=== PATIENT | male | born 1955 | race Caucasian/White ===

== ENCOUNTER 2018-06-20 06:07 | Inpatient (IN) | payer OTHER ==
--- NOTE | 2018-06-20 06:14 | PDOC ---
History of Present Illness - General Chief Complaint: Chest Pain Stated Complaint: CHEST PAIN Time Seen by Provider: 06/20/18 06:09 - History of Present Illness Initial Comments: 06/20/18 06:16 This 62-year-old man with a history of hypertension presents with few hour of substernal chest pressure radiating to bilateral jaws. He also has mild numbness of the left arm. Patient works irregular hours in his job, and began to feel mild chest pressure at approximately 3:30 AM while at work. He arrived home at approximately 4 AM (after working approximately 18 hours). He attempted to go to sleep but above symptoms worsened. He took his 6 AM doses of his antihypertensives and came to the ER. He denies shortness of breath/diaphoresis/nausea. No recent acute illness. He denies previous pain or shortness of breath with exertion. No previous history of TX or ACS. . 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 He states that fasting blood sugar was noted to be 300 by his PMD, Dr Abbott, earlier this year but he thought this was a mistake and never took the medication that was prescribed. He has been taking his antihypertensive medications as prescribed. He had one previous episode of chest pain ("many years ago ") seen in ER; thought to be anxiety and not cardiac Risk factors: Positive hypertension, history of smoking (quit more than 10 years ), obesity, possible DM; no hyperlipidemia/family history Past History - Past Medical History Allergies/Adverse Reactions: Allergies Allergy/AdvReac Type Severity Reaction Status Date / Time Penicillins Allergy Verified 06/20/18 07:50 Home Medications: Ambulatory Orders Amlodipine Besylate 1 tab PO DAILY 06/20/18 Aspirin [ASA -] 325 mg PO DAILY 06/20/18 Losartan/Hydrochlorothiazide [Losartan-Hctz 100-25 mg Tab] 1 each PO DAILY 06/20 Metoprolol Succinate [Toprol Xl -] 100 mg PO DAILY 06/20/18 HTN: Yes - Suicide/Smoking/Psychosocial Hx Smoking Status: Yes Smoking History: Current some day smoker Number of Cigarettes Smoked Daily: 0 Cigars Per Day: 1 Review of Systems - Review of Systems Able to Perform ROS?: Yes Comments:: 12 point review of systems is negative except for what is noted in the history of present illness *Physical Exam - Vital Signs Last Vital Signs Temp Pulse Resp BP Pulse Ox 98.8 F 87 20 162/98 98 06/21/18 14:00 06/21/18 14:00 06/21/18 14:00 06/21/18 14:00 06/21/18 08:00 - Physical Exam Comments: GENERAL: Adult male, alert and oriented X3, in no acute distress HEAD: Normal with no signs of trauma. EYES: PERRLA, EOMI, sclera anicteric, conjunctiva clear. ENT: Ears normal, nares patent, oropharynx clear without exudates. Moist mucous membranes. NECK: Normal range of motion, supple without lymphadenopathy, JVD, or masses. LUNGS: Breath sounds equal, clear to auscultation bilaterally. No wheezes, and no crackles. No pain on palpation of chest wall; pain reproduced with movement of arms HEART:Regular rate and rhythm, normal S1 and S2 without murmur, rub or gallop. ABDOMEN:.normal bowel sounds No guarding,tenderness or rebound.No masses No distention. EXTREMITIES: Normal range of motion, no edema. No clubbing or cyanosis. No erythema, or tenderness. NEUROLOGICAL: Cranial nerves II through XII grossly intact. Normal speech. No focal neurological deficits. MUSCULOSKELETAL: Back non-tender to palpation, no CVA tenderness SKIN: Warm, Dry, normal turgor, no rashes or lesions noted. 12-lead electrocardiogram performed and interpreted by me: Normal sinus rhythm at 83 bpm. There is left axis deviation. First degree AV block and nonspecific intraventricular block is present. There is no evidence of acute ST or T-wave abnormalities. No previous tracing is available for comparison ED Treatment Course - LABORATORY CBC & Chemistry Diagram: 06/20/18 06:30 06/21/18 08:00 - ADDITIONAL ORDERS Additional order review: Laboratory Results 06/21/18 06/21/18 06/21/18 12:33 08:00 08:00 Sodium 134 L Potassium 3.4 L Chloride 96 L Carbon Dioxide 29 Anion Gap 9 BUN 10 Creatinine 0.8 Creat Clearance w eGFR > 60 POC Glucometer 292 Random Glucose 264 H Calcium 8.7 Magnesium Cancelled 1.6 L Total Bilirubin 1.0 AST 86 H ALT 30 Alkaline Phosphatase 119 H Troponin I 16.00 H* Total Protein 7.5 Albumin 3.5 06/21/18 08:00 Sodium Cancelled Potassium Cancelled Chloride Cancelled Carbon Dioxide Cancelled Anion Gap Cancelled BUN Cancelled Creatinine Cancelled Creat Clearance w eGFR Cancelled POC Glucometer Random Glucose Cancelled Calcium Cancelled Magnesium Total Bilirubin Cancelled AST Cancelled ALT Cancelled Alkaline Phosphatase Cancelled Troponin I Total Protein Cancelled Albumin Cancelled 06/21/18 06/21/18 06/20/18 12:33 05:06 21:41 RBC MCV MCHC RDW MPV Neutrophils % Lymphocytes % Monocytes % Eosinophils % Basophils % POC Glucometer 292 283 205 06/20/18 06/20/18 06/20/18 16:32 11:37 06:30 RBC 5.15 MCV 85.9 MCHC 33.7 RDW 12.4 MPV 9.9 Neutrophils % 57.0 Lymphocytes % 29.6 Monocytes % 10.2 Eosinophils % 2.3 Basophils % 0.9 POC Glucometer [phone] - Medications Given in the ED: ED Medications Discontinued Medications Generic Name Dose Route Start Last Admin Trade Name Freq PRN Reason Stop Dose Admin Alprazolam 0.25 mg 06/21/18 10:30 06/21/18 10:44 Xanax - PO 06/21/18 10:31 0.25 mg ONCE ONE Administration Aspirin 325 mg 06/20/18 07:07 06/20/18 07:44 Asa - PO 06/20/18 07:08 Not Given ONCE ONE Atorvastatin Calcium 80 mg 06/20/18 20:52 06/20/18 21:37 Lipitor - PO 06/20/18 20:53 80 mg ONCE ONE Administration Clopidogrel Bisulfate 300 mg 06/20/18 21:45 06/20/18 21:38 Plavix - PO 06/20/18 21:46 300 mg ONCE ONE Administration Enoxaparin Sodium 140 mg 06/20/18 21:30 06/20/18 21:38 Lovenox - SQ 140 mg BID HARSH Administration Potassium Chloride 10 meq in 100 mls @ 100 mls/hr 06/21/18 09:15 06/21/18 10: 31 Potassium Chloride 10 Meq Premix Ivpb - IVPB 06/21/18 10:14 100 mls/hr Q60M HARSH Administration Insulin Aspart 1 vial 06/20/18 11:00 06/21/18 06:42 Novolog Vial Sliding Scale - SQ 6 units ACHS HARSH Administration Protocol Magnesium Sulfate 2 gm 06/21/18 10:15 06/21/18 10:31 Magnesium Sulfate IVPB 06/21/18 10:16 2 gm ONCE ONE Administration Metoprolol Tartrate 100 mg 06/21/18 01:54 06/21/18 02:38 Lopressor - PO 06/21/18 01:55 100 mg ONCE ONE Administration Potassium Chloride 20 meq 06/20/18 11:11 06/20/18 11:40 K-Dur - PO 06/20/18 11:12 20 meq ONCE ONE Administration Sodium Chloride 1,000 ml 06/20/18 08:50 06/20/18 09:00 Normal Saline - IV 06/20/18 08:51 1,000 ml ONCE ONE Administration Medical Decision Making - Medical Decision Making 06/20/18 06:38 This 62-year-old man with a history of hypertension, possible DM, moderately obese presents with a few hour history of substernal chest pressure radiating to bilateral jaws; no associated symptoms. Reportedly had normal stress test approximately 1 month ago. Physical exam unremarkable except for elevated blood pressure. 12-lead electrocardiogram shows no evidence of acute ST or T- wave abnormalities. Differential diagnosis includes ACS , GI etiology, musculoskeletal strain, anxiety CBC/chemistry profile/troponin/INR/UA sent 06/20/18 07:00 Case signed out to Dr Vasquez at end of shift *DC/Admit/Observation/Transfer Diagnosis at time of Disposition: Chest pain, New onset type 2 diabetes mellitus - Discharge Dispostion Condition at time of disposition: Guarded - Referrals - Patient Instructions - Post Discharge Activity
[2018-06-20] MEDS ORDERED: ASPIRIN 325 MG TABLET PO ONE (07:07)
--- NOTE | 2018-06-20 07:30 | PDOC ---
*Physical Exam - Vital Signs Last Vital Signs Temp Pulse Resp BP Pulse Ox 98.5 F 70 16 145/89 97 06/20/18 06:11 06/20/18 07:02 06/20/18 07:02 06/20/18 07:02 06/20/18 07:02 - Physical Exam Comments: 06/20/18 07:35 Gen: aaox3, nad heent: eomi, mmm neck: supple heart: +s1s2 reg lungs: cta b/l abd: soft, obese, nt/nd ext: trace edema to legs, pedal pulses intact skin: no rashes neuro: no focal deficits ED Treatment Course - LABORATORY CBC & Chemistry Diagram: 06/20/18 06:30 06/20/18 06:30 Medical Decision Making - Medical Decision Making 06/20/18 07:29 a/p: 62yo male with hx of HTN and poss dm with chest pressure to jaw this AM -signed out from the prior attending pending labs, cxr 06/20/18 07:36 pt states chest pressure resolved bp improved took full ASA this am took bp meds this am poss acs vs hypertensive urgency/emergency had stress test that was "normal" with Dr. Adams a month ago - underwent stress testing because he wanted to start an exercise program and wanted to be check prior to starting was told in the past he had an elevated BG - but never started the meds for DM 06/20/18 08:45 ua with glucose and protein pending CHEM cxr clear with slightly elevated R hemidiaphragm cbc normal 06/20/18 09:19 trop negative still have 1min episodes of chest discomfort that resolves spontaneously will place on obs 06/20/18 09:21 microblog sent to [facility] will place consult to DR. Adams 06/20/18 09:26 pt updated on labs and imaging willing to stay for further eval and cards eval consult placed to cardiology - Dr. Adams for eval 06/20/18 10:04 case discussed with Jevon from [employer] who accepts pt to service *DC/Admit/Observation/Transfer Diagnosis at time of Disposition: Chest pain, New onset type 2 diabetes mellitus - Discharge Dispostion Condition at time of disposition: Fair Decision to Admit order: Yes - Referrals Referrals: Carlos Abbott MD [Primary Care Provider] - - Patient Instructions - Post Discharge Activity - Attestations Physician Attestion: 06/20/18 09:22 I, Dr. Shakila Vasquez, DO, attest that this document has been prepared under my direction and personally reviewed by me in its entirety. I further attest, that it accurately reflects all work, treatment, procedures and medical decision -making performed by me.
[2018-06-20 08:28] LABS: URINE APPEARANCE Clear; URINE BILIRUBIN Negative (NEGATIVE); URINE COLOR Amber; URINE GLUCOSE (UA) 3+ (NEGATIVE); URINE KETONE Trace (NEGATIVE); URINE LEUK ESTERASE Negative (NEGATIVE); URINE NITRITE Negative (NEGATIVE)
[2018-06-20 08:32] LABS: BASO % 0.9 % (0-2.0); EOS % 2.3 % (0-4.5); HEMATOCRIT 44.3 % (35.4-49); HEMOGLOBIN 14.9 GM/dl (11.7-16.9); LYMPH % 29.6 % (8-40); MCHC 33.7 g/dl (32.0-35.9); MEAN CELL VOLUME 85.9 fl (80-96); MEAN PLT VOLUME 9.9 fl (7.5-11.1); MONO % 10.2 % (3.8-10.2); PLATELET COUNT 300 K/MM3 (134-434); RBC 5.15 M/mm3 (4.00-5.60); RDW 12.4 % (11.9-15.9)
[2018-06-20 08:34] LABS: URINE PROTEIN 2+ (NEGATIVE)
[2018-06-20 08:43] LABS: ALBUMIN 3.8 g/dl (3.5-5.0); ALK PHOS 94 U/L (32-92); ANION GAP 10 MMOL/L (8-16); BILIRUBIN,TOTAL 0.9 mg/dl (0.2-1.0); BLOOD UREA NITROGEN 17 mg/dl (7-18); CALCIUM 8.9 mg/dl (8.4-10.2); CHLORIDE 95 mmol/L (98-107); CO2 28 mmol/L (22-28); CREATININE 0.7 mg/dl (0.6-1.3); POTASSIUM 3.5 mmol/L (3.5-5.1); SGOT/AST 14 U/L (10-42); SGPT/ALT 20 U/L (10-40); SODIUM 133 mmol/L (136-145); TOT PROT 7.1 g/dl (6.4-8.3)
[2018-06-20 08:50] LABS: GLUCOSE,RANDOM 329 mg/dl (74-106)
[2018-06-20] MEDS ORDERED: SODIUM CHLORIDE 0.9% 1000 ML INFUS.BAG IV ONE (08:50)
[2018-06-20 09:01] LABS: INR 0.97 (0.82-1.09); PROTHROMBIN TIME (PATIENT) 10.9 SEC (10.2-13.0)
[2018-06-20 09:13] LABS: URINE WBC 0-2 (0-2)
--- NOTE | 2018-06-20 10:43 | HP ---
CHIEF COMPLAINT: Chest pain,uncontrolled DM and HTN. PCP: Dr. Abbott cardiology Dr. Adams HISTORY OF PRESENT ILLNESS: This is a 62-year-old man with a history of hypertension, recently dx DM, moderately obese, ex-smoker,?anxiety and gastritis, who presents to ER c/o cp. Pt states that MS chest pain started at work around 3Am which radiated to mid- back with no associated symptoms, went home took Zantac 150mg and went to bed, woke up around 4:15 am with chest discomfort radiates to bilateral jaws and left arm numbness. Pt denies sob, palpitations, diaphoresis,DEL ROSARIO, dizziness, abdominal pain, N/V/D, fever, chills or urinary symptoms. 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 Pt also states that fasting blood sugar was noted to be 300 by his PMD, Dr Abbott recently and was prescribed Metformin 1000mg daily but he thought this was a mistake and never took the medication that was prescribed. ER course was notable for: (1)EKG Sr with first degree AVB, non- specific ST changes. (2)BP 190/118, HR 89, R 18 and Temp 98.5 (3)CXR: No acute pathology (4) initial trop - neg , BS 329, ALK-94, NA 133 Recent Travel:No PAST MEDICAL HISTORY: as mentioned above PAST SURGICAL HISTORY: Tonsillectomy as a child Social History: Smoking:ex- smoker Alcohol:social (special occasions) Drugs: None Family History: Father - HTN, Dementia, Colon Ca - of colon CA - year ago Mother : CVA, HTN and CHO Siblings: DM,HTN Allergies Penicillins Allergy (Verified 06/20/18 07:50) STATES HE GETS A HIGH FEVER HOME MEDICATIONS: Home Medications Medication Instructions Recorded Amlodipine Besylate 1 tab PO DAILY 06/20/18 Aspirin [ASA -] 325 mg PO DAILY 06/20/18 Losartan/Hydrochlorothiazide 1 each PO DAILY 06/20/18 [Losartan-Hctz 100-25 mg Tab] Metoprolol Succinate [Toprol Xl -] 100 mg PO DAILY 06/20/18 REVIEW OF SYSTEMS CONSTITUTIONAL: Absent: fever, chills, diaphoresis, generalized weakness, malaise, loss of appetite, weight change HEENT: Absent: rhinorrhea, nasal congestion, throat pain, throat swelling, difficulty swallowing, mouth swelling, ear pain, eye pain, visual changes CARDIOVASCULAR: Absent: chest pain, syncope, palpitations, irregular heart rate, lightheadedness , peripheral edema RESPIRATORY: Absent: cough, shortness of breath, dyspnea with exertion, orthopnea, wheezing, stridor, hemoptysis GASTROINTESTINAL: Absent: abdominal pain, abdominal distension, nausea, vomiting, diarrhea, constipation, melena, hematochezia GENITOURINARY: Absent: dysuria, frequency, urgency, hesitancy, hematuria, flank pain, genital pain MUSCULOSKELETAL: Absent: myalgia, arthralgia, joint swelling, back pain, neck pain SKIN: Absent: rash, itching, pallor HEMATOLOGIC/IMMUNOLOGIC: Absent: easy bleeding, easy bruising, lymphadenopathy, frequent infections ENDOCRINE: Absent: unexplained weight gain, unexplained weight loss, heat intolerance, cold intolerance NEUROLOGIC: Absent: headache, focal weakness or paresthesias, dizziness, unsteady gait, seizure, mental status changes, bladder or bowel incontinence PSYCHIATRIC: Absent: anxiety, depression, suicidal or homicidal ideation, hallucinations. PHYSICAL EXAMINATION Vital Signs - 24 hr 06/20/18 06/20/18 06/20/18 06:11 07:02 09:15 Temperature 98.5 F Pulse Rate 89 Pulse Rate [ 70 74 Apical] Respiratory 18 16 20 Rate Blood Pressure 190/118 Blood Pressure 145/89 164/97 [Arm] O2 Sat by Pulse 99 97 97 Oximetry (%) 06/20/18 10:00 Temperature Pulse Rate Pulse Rate [ 73 Apical] Respiratory 22 Rate Blood Pressure Blood Pressure 165/99 [Arm] O2 Sat by Pulse 96 Oximetry (%) GENERAL: Awake, alert, and fully oriented, in no acute distress. HEAD: Normal with no signs of trauma. EYES: Pupils equal, round and reactive to light, extraocular movements intact, sclera anicteric, conjunctiva clear. No lid lag. EARS, NOSE, THROAT: Ears normal, nares patent, oropharynx clear without exudates. Moist mucous membranes. NECK: Normal range of motion, supple without lymphadenopathy, JVD, or masses. LUNGS: Breath sounds equal, clear to auscultation bilaterally. No wheezes, and no crackles. No accessory muscle use. HEART: Regular rate and rhythm, normal S1 and S2 without murmur, rub or gallop. ABDOMEN: Soft, nontender, not distended, normoactive bowel sounds, no guarding, no rebound, no masses. No hepatomegaly or splenomegaly. MUSCULOSKELETAL: Normal range of motion at all joints. No bony deformities or tenderness. No CVA tenderness. UPPER EXTREMITIES: 2+ pulses, warm, well-perfused. No cyanosis. No clubbing. No peripheral edema. LOWER EXTREMITIES: 2+ pulses, warm, well-perfused. No calf tenderness. No peripheral edema. NEUROLOGICAL: Cranial nerves II-XII intact. Normal speech. Normal gait. PSYCHIATRIC: Cooperative. Good eye contact. Appropriate mood and affect. SKIN: Warm, dry, normal turgor, no rashes or lesions noted, normal capillary refill. Laboratory Results - last 24 hr 06/20/18 06/20/18 06/20/18 06:30 06:30 06:30 WBC 7.0 RBC 5.15 Hgb 14.9 Hct 44.3 MCV 85.9 MCH 29.0 MCHC 33.7 RDW 12.4 Plt Count 300 MPV 9.9 Absolute Neuts (auto) 3.9 Neutrophils % 57.0 Lymphocytes % 29.6 Monocytes % 10.2 Eosinophils % 2.3 Basophils % 0.9 PT with INR INR Sodium 133 L Potassium 3.5 Chloride 95 L Carbon Dioxide 28 Anion Gap 10 BUN 17 Creatinine 0.7 Creat Clearance w eGFR > 60 Random Glucose 329 H* Calcium 8.9 Total Bilirubin 0.9 AST 14 ALT 20 Alkaline Phosphatase 94 H Creatine Kinase Cancelled Troponin I Cancelled Total Protein 7.1 Albumin 3.8 Urine Color Erin Urine Appearance Clear Urine pH 6.0 Ur Specific [place] 1.015 Urine Protein 2+ H Urine Glucose (UA) 3+ H Urine Ketones Trace Urine Blood Negative Urine Nitrite Negative Urine Bilirubin Negative Urine Urobilinogen 1.0 Ur Leukocyte Esterase Negative Urine RBC No Result Required. Urine WBC 0-2 06/20/18 06/20/18 06/20/18 06:30 07:44 07:44 WBC RBC Hgb Hct MCV MCH MCHC RDW Plt Count MPV Absolute Neuts (auto) Neutrophils % Lymphocytes % Monocytes % Eosinophils % Basophils % PT with INR 10.9 INR 0.97 Sodium Potassium Chloride Carbon Dioxide Anion Gap BUN Creatinine Creat Clearance w eGFR Random Glucose Calcium Total Bilirubin AST ALT Alkaline Phosphatase Creatine Kinase 52 Troponin I < 0.03 Total Protein Albumin Urine Color Urine Appearance Urine pH Ur Specific [place] Urine Protein Urine Glucose (UA) Urine Ketones Urine Blood Urine Nitrite Urine Bilirubin Urine Urobilinogen Ur Leukocyte Esterase Urine RBC Urine WBC ASSESSMENT/PLAN: This is a 62-year-old man with a history of hypertension, recently dx DM, moderately obese, ex-smoker,?anxiety and gastritis, who presents to ER c/o cp. * Chest pain R/O ACS -serial cardiac enzymes - tro neg x1 - tele monitoring -cardiology consult requested - will cont on ASA, BB - will check fasting lipids * Uncontrolled HTN - will cont on homes - will monitor BP closely - Na controlled diet * DM- uncontrolled - BS 329 - FS AC& HS - will start on Lispro sliding scale - will check Hgb Alc - Nutritional consult ordered * Obesity - weight loss encouraged - Nutritional consult ordered * Gastritis - will add PPI * Hyponatremia- likely due to diuretic use - K- 3.5 - K- [id number] x1 dose -NA 133, s/p IV hydration * F/E/N - Diabetic,NA controlled diet - Replace electrolytes as needed Visit type - Emergency Visit Emergency Visit: Yes Care time: The patient presented to the Emergency Department on the above date and was hospitalized for further evaluation of their emergent condition. - New Patient This patient is new to me today: Yes Date on this admission: 06/20/18 - Critical Care Critical Care patient: No Hospitalist Screening - Colonoscopy Questionnaire Colonoscopy Questionnaire: Colonoscopy Questionnaire - Patient: 50 - 75 years old and never had a screening colonoscopy: Yes History of colon or rectal polyps, or CA: No History of IBD, Crohn's disease or UC: No History of abdominal radiation therapy as a child: No - Relative: 1 with colon or rectal CA, or polyps at age 60 or younger: Yes Colon or rectal CA diagnosed at age 45 or younger: No Multiple relatives with colon or rectal CA: No - Outcome: Screening Result: Positive Screen
[2018-06-20] MEDS ORDERED: hydrALAZINE HCL 20 MG/ML VIAL IVPUSH PRN (11:02)
[2018-06-20] MEDS ORDERED: POTASSIUM CHLORIDE TABS 20 MEQ TABLET.ER (FP) PO ONE (11:11)
[2018-06-20] MEDS ORDERED: HEMOQUE TEST 1 EACH EACH ONE (11:34)
[2018-06-20] MEDS: INSULIN SLIDING SCALE (NOVOLOG) 1 VIAL SQ SCH ×3 (11:38→21:46)
[2018-06-20] MEDS ORDERED: INSULIN (NOVOLOG) ASPART 100 UNITS/ML 10ML VIAL ONE ×3 (11:40→21:44)
[2018-06-20 14:34] LABS: CHOLESTEROL 191 mg/dl; HDL CHOLESTEROL 41 mg/dl (29-89); LDL CHOLESTEROL (ONLY DFH) 135 mg/dl; TRIGLYCERIDES 75 mg/dl (35-160)
--- NOTE | 2018-06-20 18:55 | EKG ---
Test Reason : Blood Pressure : / mmHG Vent. Rate : 083 BPM Atrial Rate : 083 BPM P-R Int : 216 ms QRS Dur : 128 ms QT Int : 394 ms P-R-T Axes : 056 -48 080 degrees QTc Int : 462 ms SINUS RHYTHM WITH 1ST DEGREE A-V BLOCK LEFT AXIS DEVIATION NON-SPECIFIC INTRA-VENTRICULAR CONDUCTION BLOCK ABNORMAL ECG NO PREVIOUS ECGS AVAILABLE Confirmed by MAIKEL CHANG, APRYL ([id number]) on 06/20/2018 6:54:52 PM Referred By: MD KHOURY Confirmed By:APRYL KO MD
[2018-06-20] MEDS ORDERED: ATORVASTATIN CA 80 MG TABLET (FP) PO ONE (20:52)
[2018-06-20] MEDS ORDERED: CLOPIDOGREL BISULFATE 300 MG TABLET PO ONE (21:00)
[2018-06-20] MEDS ORDERED: ENOXAPARIN NA (PORCINE) 80 MG/0.8 ML DISP.SYRIN SQ SCH (21:30)
[2018-06-20] MEDS ORDERED: CLOPIDOGREL BISULFATE 75 MG TABLET (FP) PO ONE (21:45)
[2018-06-21] MEDS ORDERED: METOPROLOL TARTRATE 50 MG TABLET (FP) PO ONE (01:54)
--- NOTE | 2018-06-21 04:52 | HOSP ---
Subjective - Review of Symptoms Neurological: Yes: Numbness (metatarsal plantar surface) Physical Examination Vital Signs: Vital Signs Temperature 98.1 F 06/21/18 02:00 Pulse Rate 81 06/21/18 02:00 Respiratory Rate 18 06/21/18 02:00 Blood Pressure 165/107 06/21/18 02:00 O2 Sat by Pulse Oximetry (%) 95 06/21/18 00:56 Findings/Remarks: NAD, AAOx3. Neck supple, no LAD or JVD. Lungs CTA B/L. -w/r/r RRR. Normal S1, S2. -m/r/g abd soft NT/ND, +normactive bowels sounds 5/5 muscle strength b/l u/l extremities 2+ pedal pulses bilaterally nl sensation b/l Constitutional: Yes: Obese Labs: CBC, BMP 06/20/18 06:30 06/20/18 06:30 Hospitalist Encounter Assessment: Pt reports symptoms of chest pressure at 3am while driving home from work. He complained of persistent chest pain and was admitted at [facility]. Due to increase in troponin, pt was transferred to [facility] for mgmt of NSTEMI. Pt seen and examined at bedside. Pt reports resolution of chest pain at this time. Denies headaches/dizziness, fever/chills, nausea/vomiting, urinary/bowel symptoms. Repeat troponins showed continue elevation from 3.39 to 13.60. Repeat ECG was done that showed ST evolution in V4, V5, V6. Cardio was contacted immediately and made aware of ECG and troponin changes. Per cardio, evolution of ECG changes likely portrayed cardiac event that happened hours ago and not an acute cardiac event. Medical management was opted with no need for immediate cath, however, angiogram was recommended at some point in the near future. #Post-infarct angina 2/2 NSTEMI -Aspirin 81 QD -Atorvastatin 80 HS -Clopidogrel 75 QD -Metoprolol Succinate 100 QD -cardio recs appreciated -Nitroglycerin 0.4 mg SL -f/u repeat trop, ECG #Uncontrolled HTN; 156/92 -Hydralazine 10 mg IVP Q8H -HCTZ 25 QD -Losartan 100 QD -Amlodipine 10 QD -cont to monitor #DM; A1c 10.2, Initial Glu 329 -BGMs -ISS -Levemir 10U HS -pt needs outpatient follow up with PCP for continued mgmt -pt also needs podiatry outpatient follow up for further evaluation of peripheral neuropathy #DVT Ppx -Lovenox 140 SQ BID #FEN -no IVF -Na 133, recheck CMP in AM -diabetic diet dispo -cont to monitor on tele Visit type - Emergency Visit Emergency Visit: No - New Patient This patient is new to me today: Yes Date on this admission: 06/21/18 - Critical Care Critical Care patient: No
[2018-06-21] MEDS ORDERED: NITROGLYCERIN SUBLINGUAL 1/200 0.3 MG BTL SL PRN (05:27)
--- NOTE | 2018-06-21 05:28 | PN ---
Teaching Attending Note Name of Resident: Rosina Schwab ATTENDING PHYSICIAN STATEMENT I saw and evaluated the patient. Chart, data, imaging reviewed. I reviewed the resident's note and discussed the case with the resident. I agree with the resident's findings and plan as documented. 62yo man with chest pressure which started 8 at 3 am when he was driving home from work and recurred after attempting to sleep, found to have increasing troponin in [facility] ER and transferred to [place] for management of NSTEMI. 4th troponin has had risen up to 13. EKG showed possible evolution of NE in anterior -lateral leads. Patient was treated medically with clopidogrel, ASA, statin, Bblocker, enoxaparin. Cardiology front office associate was contacted and suggested that patient does not need urgent angiography since he is currently asymptomatic. Will continue to trend troponins and manage medically.
[2018-06-21] MEDS ORDERED: NITROGLYCERIN SUBLINGUAL 1/150 0.4 MG TAB SL PRN (05:49)
[2018-06-21] MEDS: INSULIN SLIDING SCALE (NOVOLOG) 1 VIAL SQ SCH (06:42)
[2018-06-21 08:50] LABS: ALBUMIN 3.5 g/dl (3.4-5.0); ALK PHOS 119 U/L (45-117); ANION GAP 9 MMOL/L (8-16); BLOOD UREA NITROGEN 10 mg/dL (7-18); CALCIUM 8.7 mg/dL (8.5-10.1); CHLORIDE 96 mmol/L (98-107); CO2 29 mmol/L (21-32); CREATININE 0.8 mg/dL (0.7-1.3); GLUCOSE,RANDOM 264 mg/dL (74-106); POTASSIUM 3.4 mmol/L (3.5-5.1); SGOT/AST 86 U/L (15-37); SGPT/ALT 30 U/L (12-78); SODIUM 134 mmol/L (136-145); TOT PROT 7.5 g/dl (6.4-8.2)
[2018-06-21] MEDS ORDERED: KCL 10 MEQ IVPB 10 MEQ/100 ML INFUS.BAG IVPB SCH (09:15)
[2018-06-21 09:54] LABS: MAGNESIUM 1.6 mg/dL (1.8-2.4)
[2018-06-21] MEDS ORDERED: PANTOPRAZOLE 40 MG TABLET (FP) PO SCH (10:00)
[2018-06-21] MEDS ORDERED: ASPIRIN 325 MG TABLET PO SCH (10:00)
[2018-06-21] MEDS ORDERED: LOSARTAN POTASSIUM 50 MG TABLET (FP) PO SCH (10:00)
[2018-06-21] MEDS ORDERED: CLOPIDOGREL BISULFATE 75 MG TABLET (FP) PO SCH (10:00)
[2018-06-21] MEDS ORDERED: HYDROCHLOROTHIAZIDE 25 MG TABLET (FP) PO SCH (10:00)
[2018-06-21] MEDS ORDERED: ASPIRIN 81 MG CHEWABLE TABLETS PO SCH (10:00)
[2018-06-21] MEDS ORDERED: amLODIPine BESYLATE 10 MG TABLET (FP) PO SCH (10:00)
[2018-06-21] MEDS ORDERED: PATIENT'S OWN MEDICATION (NON-FORMULARY) (Losartan/Hydrochlorothiazide [Losartan-Hctz 100- PO SCH (10:00)
[2018-06-21] MEDS ORDERED: HEPARIN NA (PORCINE) 5,000 UNITS/ML 1ML VIAL IVPUSH PRN ×2 (10:03)
--- NOTE | 2018-06-21 10:03 | CON.CARD ---
Consult Consult Specialty:: Cardiology Referred by:: Kristen Reason for Consultation:: NSTEMI - History of Present Illness Chief Complaint: chest pain History of Present Illness: 62M h/o DM, HTN p/w chest pain x 2 episodes. He works night hours, was driving home from work around 4 am and felt chest pain radiating to mid back, felt like burning, took zantac and went to bed. Woke up again an hour later with chest discomfort radiating to robin jaws, L arm numbness. No dyspnea, orthopnea, PND, palps. Has chronic LLE edema from prior leg injury. Patient of Dr. Adams, last seen in 03/2018, had stress echo showing poor exercise capacity, no ischemic changes on EKG or echo. Trop neg ->0.6->3->13->16, started on plavix 300 mg x1, lovenox, aspirin, atorvastatin. Also noted to have high blood sugar , per patient dx of DM is new. Has not had further episodes of chest pain. - History Source History Provided By: Patient Limitations to Obtaining History: No Limitations - Past Medical History Cardio/Vascular: Yes: HTN Endocrine: Yes: Diabetes Mellitus - Alcohol/Substance Use Hx Alcohol Use: Yes (SOCIALLY) - Smoking History Smoking history: Current some day smoker Have you smoked in the past 12 months: Yes Aproximately how many cigarettes per day: 0 Home Medications - Allergies Allergies/Adverse Reactions: Allergies Allergy/AdvReac Type Severity Reaction Status Date / Time Penicillins Allergy Verified 06/20/18 07:50 - Home Medications Home Medications: Ambulatory Orders Amlodipine Besylate 1 tab PO DAILY 06/20/18 Aspirin [ASA -] 325 mg PO DAILY 06/20/18 Losartan/Hydrochlorothiazide [Losartan-Hctz 100-25 mg Tab] 1 each PO DAILY 06/20 Metoprolol Succinate [Toprol Xl -] 100 mg PO DAILY 06/20/18 Review of Systems - Review of Systems Constitutional: reports: No Symptoms Eyes: reports: No Symptoms HENT: reports: No Symptoms Neck: reports: No Symptoms Cardiovascular: reports: Chest Pain Respiratory: reports: No Symptoms Gastrointestinal: reports: No Symptoms Genitourinary: reports: No Symptoms Musculoskeletal: reports: No Symptoms Integumentary: reports: No Symptoms Neurological: reports: No Symptoms Endocrine: reports: No Symptoms Hematology/Lymphatic: reports: No Symptoms Psychiatric: reports: Anxiety Vital Signs: Vital Signs Temperature 99 F 06/21/18 06:00 Pulse Rate 62 06/21/18 06:00 Respiratory Rate 18 06/21/18 06:00 Blood Pressure 151/92 06/21/18 06:00 O2 Sat by Pulse Oximetry (%) 98 06/21/18 08:00 Constitutional: Yes: Well Nourished, No Distress, Calm Eyes: Yes: Conjunctiva Clear, EOM Intact HENT: Yes: Atraumatic, Normocephalic Neck: Yes: Supple Respiratory: Yes: Regular, CTA Bilaterally Gastrointestinal: Yes: Normal Bowel Sounds, Soft Cardiovascular: Yes: Regular Rate and Rhythm JVD: No Heart Sounds: Yes: S1, S2 Edema: No Edema: LLE: 1+, RLE: Trace Peripheral Pulses: 1+ Left Doralis Pedis, 1+ Right Dorsalis Pedis Neurological: Yes: Alert, Oriented Psychiatric: Yes: Alert, Oriented - Other Data Labs, Other Data: CBC, BMP 06/20/18 06:30 06/21/18 08:00 INR, PTT INR 0.97 (0.82-1.09) 06/20/18 06:30 Troponin, BNP 06/20/18 06/20/18 06/21/18 13:50 19:50 02:10 Troponin I 0.64 H* D 3.39 H* D 13.60 H* 06/21/18 08:00 Troponin I 16.00 H* Troponin, BNP 06/20/18 06/20/18 06/21/18 13:50 19:50 02:10 Troponin I 0.64 H* D 3.39 H* D 13.60 H* 06/21/18 08:00 Troponin I 16.00 H* Assessment/Plan Stress echo 03/31/18 poor exercise workload, very rapid early rise in HR, appropraite BP response to exercise. Nonischemic stress test by EKG, no echo evidence of inducible ischemia EKG 06/20 sinus 1st deg AVB, IVCD, LAD EKG 06/21 sinus 1st deg AVB, LVH Tele: sinus with PVCs 62M h/o DM, HTN p/w NSTEMI NSTEMI - received plavix 300 mg, aspirin, atorvastatin, lovenox - case discussed with Dr. Carcamo, [facility], accepts for transfer for cardiac catheterization - will stop lovenox and start heparin gtt - monitoring on tele DM - manage per primary team HTN - not well controlled, has not had AM meds yet
[2018-06-21] MEDS ORDERED: MAGNESIUM SULF 50% (8.12 MEQ/2 ML-1 GM VIAL) IVPB ONE (10:15)
[2018-06-21] MEDS ORDERED: HEPARIN - 25,000 UNIT in SODIUM CHLORIDE 495 ML IV SCH (10:15)
--- NOTE | 2018-06-21 10:29 | PN ---
Physical Exam: SUBJECTIVE: Patient seen and examined at the bedside. Denies chest pain or shortness of breath. 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 OBJECTIVE: for transfer to [place] xanax x 1 for anxiety Vital Signs Period Temp Pulse Resp BP Sys/Lockwood Pulse Ox Last 24 Hr 98.1 F-99 F 62-84 15-20 146-165/92-107 95-98 GENERAL: The patient is awake, alert, and fully oriented, in no acute distress. HEAD: Normal with no signs of trauma. EYES: PERRL, extraocular movements intact, sclera anicteric, conjunctiva clear. No ptosis. ENT: Ears normal, nares patent, oropharynx clear without exudates, moist mucous membranes. NECK: Trachea midline, full range of motion, supple. LUNGS: Breath sounds equal, clear to auscultation bilaterally, no wheezes, no crackles, no accessory muscle use. HEART: Regular rate and rhythm, S1, S2 without murmur, rub or gallop. ABDOMEN: Soft, nontender, nondistended, normoactive bowel sounds, no guarding, no rebound, no hepatosplenomegaly, no masses. EXTREMITIES: 2+ pulses, warm, well-perfused, no edema. NEUROLOGICAL: Cranial nerves II through XII grossly intact. Normal speech, gait not observed. PSYCH: Normal mood, normal affect. SKIN: Warm, dry, normal turgor, no rashes or lesions noted Laboratory Results - last 24 hr 06/20/18 06/20/18 06/20/18 06:30 11:37 13:50 Sodium Potassium Chloride Carbon Dioxide Anion Gap BUN Creatinine Creat Clearance w eGFR POC Glucometer [phone] Random Glucose Hemoglobin A1c % 10.2 H Calcium Magnesium Total Bilirubin AST ALT Alkaline Phosphatase Troponin I 0.64 H* D Total Protein Albumin Triglycerides Cholesterol Total LDL Cholesterol HDL Cholesterol 06/20/18 06/20/18 06/20/18 13:50 16:32 19:50 Sodium Potassium Chloride Carbon Dioxide Anion Gap BUN Creatinine Creat Clearance w eGFR POC Glucometer 236 Random Glucose Hemoglobin A1c % Calcium Magnesium Total Bilirubin AST ALT Alkaline Phosphatase Troponin I 3.39 H* D Total Protein Albumin Triglycerides 75 Cholesterol 191 Total LDL Cholesterol 135 HDL Cholesterol 41 06/20/18 06/21/18 06/21/18 21:41 02:10 05:06 Sodium Potassium Chloride Carbon Dioxide Anion Gap BUN Creatinine Creat Clearance w eGFR POC Glucometer 205 283 Random Glucose Hemoglobin A1c % Calcium Magnesium Total Bilirubin AST ALT Alkaline Phosphatase Troponin I 13.60 H* Total Protein Albumin Triglycerides Cholesterol Total LDL Cholesterol HDL Cholesterol 06/21/18 06/21/18 06/21/18 08:00 08:00 08:00 Sodium Cancelled 134 L Potassium Cancelled 3.4 L Chloride Cancelled 96 L Carbon Dioxide Cancelled 29 Anion Gap Cancelled 9 BUN Cancelled 10 Creatinine Cancelled 0.8 Creat Clearance w eGFR Cancelled > 60 POC Glucometer Random Glucose Cancelled 264 H Hemoglobin A1c % Calcium Cancelled 8.7 Magnesium 1.6 L Cancelled Total Bilirubin Cancelled 1.0 AST Cancelled 86 H ALT Cancelled 30 Alkaline Phosphatase Cancelled 119 H Troponin I 16.00 H* Total Protein Cancelled 7.5 Albumin Cancelled 3.5 Triglycerides Cholesterol Total LDL Cholesterol HDL Cholesterol Active Medications Generic Name Dose Route Start Last Admin Trade Name Freq PRN Reason Stop Dose Admin Amlodipine Besylate 10 mg 06/21/18 10:00 Norvasc - PO DAILY [facility] Aspirin 81 mg 06/21/18 10:00 Asa - PO DAILY [facility] Atorvastatin Calcium 80 mg 06/21/18 22:00 Lipitor - PO HS [facility] Clopidogrel Bisulfate 75 mg 06/21/18 10:00 Plavix - PO DAILY [facility] Heparin Sodium (Porcine) 1,000 unit 06/21/18 10:03 Heparin - IVPUSH PRN PRN Heparin Heparin Sodium (Porcine) 5,000 unit 06/21/18 10:03 Heparin - IVPUSH PRN PRN Heparin Hydralazine HCl 10 mg 06/20/18 11:02 Apresoline Injection - IVPUSH Q8H PRN HYPERTENSION Hydrochlorothiazide 25 mg 06/21/18 10:00 Hctz - PO DAILY [facility] Heparin Sodium (Porcine) 25, 500 mls @ 20 mls/hr 06/21/18 10:15 000 unit/ Sodium Chloride IV TITR [facility] Protocol 1,000 UNIT/HR Insulin Aspart 1 vial 06/20/18 11:00 06/21/18 06:42 Novolog Vial Sliding Scale - SQ 6 units ACHS [facility] Administration Protocol Insulin Detemir 10 units 06/21/18 22:00 Levemir Vial SQ HS [facility] Losartan Potassium 100 mg 06/21/18 10:00 Cozaar - PO DAILY [facility] Metoprolol Succinate 100 mg 06/21/18 10:00 Toprol Xl - PO DAILY [facility] Nitroglycerin 0.4 mg 06/21/18 05:49 Nitrostat - SL Q5M PRN FOR CHEST PAIN Pantoprazole Sodium 40 mg 06/21/18 10:00 Protonix - PO DAILY [facility] ASSESSMENT/PLAN: Patient is a 62 year old male with a significant past medical history of hypertension, diabetes, obesity with bmi 40, ex smoker and anxiety. Patient presents to [facility] with chest pain that radiated to bilateral jaws with left arm numbness. Patent was transferred to [facility] from [facility] for elevated troponins. ekg: NSR, 1st degree av block. Card: NSTEMI: Trops 0.6>3.3>13>16. PVCs on tele. No chest pain, denies shorntess of breath. Started on Lovenox weight based BID and convered to Heparin drip in anticipation of cardiac cath at [place]. Overnight given Plavix 300mg x 1, Lipitor 80mg x 1, Lovenox, ASA. Hypertension: on cozaar, toprol, norvasc. Monitor BP HLD: on lipitor Endocrine: Diabetes: uncontrolled, tightened SS, increased levemir. monitor BGMs. fen no ivf monitor electrolytes low salt diet prophy; heparin drip full code Visit type - Emergency Visit Emergency Visit: Yes ED Registration Date: 06/21/18 Care time: The patient presented to the Emergency Department on the above date and was hospitalized for further evaluation of their emergent condition. - New Patient This patient is new to me today: Yes Date on this admission: 06/21/18 - Critical Care Critical Care patient: No - Discharge Referral Referred to [facility] Med P.C.: No
[2018-06-21] MEDS ORDERED: ALPRAZolam 0.25 MG TABLET PO ONE (10:30)
[2018-06-21] MEDS ORDERED: INSULIN SLIDING SCALE (NOVOLOG) 1 VIAL SQ SCH (11:37)
[2018-06-21 14:31] VITALS: BMI 40.6
--- NOTE | 2018-06-21 16:23 | DS ---
Physical Exam: Physical Exam: SUBJECTIVE: Patient seen and examined at the bedside. Denies chest pain or shortness of breath. 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 OBJECTIVE: for transfer to [place] xanax x 1 for anxiety Vital Signs Period Temp Pulse Resp BP Sys/Lockwood Pulse Ox Last 24 Hr 98.1 F-99 F 62-87 18-20 134-165/82-107 95-98 PHYSICAL EXAM GENERAL: The patient is awake, alert, and fully oriented, in no acute distress. HEAD: Normal with no signs of trauma. EYES: PERRL, extraocular movements intact, sclera anicteric, conjunctiva clear. No ptosis. ENT: Ears normal, nares patent, oropharynx clear without exudates, moist mucous membranes. NECK: Trachea midline, full range of motion, supple. LUNGS: Breath sounds equal, clear to auscultation bilaterally, no wheezes, no crackles, no accessory muscle use. HEART: Regular rate and rhythm, S1, S2 without murmur, rub or gallop. ABDOMEN: Soft, nontender, nondistended, normoactive bowel sounds, no guarding, no rebound, no hepatosplenomegaly, no masses. EXTREMITIES: 2+ pulses, warm, well-perfused, no edema. NEUROLOGICAL: Cranial nerves II through XII grossly intact. Normal speech, gait not observed. PSYCH: Normal mood, normal affect. SKIN: Warm, dry, normal turgor, no rashes or lesions noted LABS Laboratory Results - last 24 hr 06/20/18 06/20/18 06/20/18 16:32 19:50 21:41 Sodium Potassium Chloride Carbon Dioxide Anion Gap BUN Creatinine Creat Clearance w eGFR POC Glucometer 236 205 Random Glucose Calcium Magnesium Total Bilirubin AST ALT Alkaline Phosphatase Troponin I 3.39 H* D Total Protein Albumin 06/21/18 06/21/18 06/21/18 02:10 05:06 08:00 Sodium Cancelled Potassium Cancelled Chloride Cancelled Carbon Dioxide Cancelled Anion Gap Cancelled BUN Cancelled Creatinine Cancelled Creat Clearance w eGFR Cancelled POC Glucometer 283 Random Glucose Cancelled Calcium Cancelled Magnesium Total Bilirubin Cancelled AST Cancelled ALT Cancelled Alkaline Phosphatase Cancelled Troponin I 13.60 H* Total Protein Cancelled Albumin Cancelled 06/21/18 06/21/18 06/21/18 08:00 08:00 12:33 Sodium 134 L Potassium 3.4 L Chloride 96 L Carbon Dioxide 29 Anion Gap 9 BUN 10 Creatinine 0.8 Creat Clearance w eGFR > 60 POC Glucometer 292 Random Glucose 264 H Calcium 8.7 Magnesium 1.6 L Cancelled Total Bilirubin 1.0 AST 86 H ALT 30 Alkaline Phosphatase 119 H Troponin I 16.00 H* Total Protein 7.5 Albumin 3.5 HOSPITAL COURSE: Date of Admission:06/21/18 Date of Discharge: 06/21/18 ASSESSMENT/PLAN: Patient is a 62 year old male with a significant past medical history of hypertension, diabetes, obesity with bmi 40, ex smoker and anxiety. Patient presents to [facility] with chest pain that radiated to bilateral jaws with left arm numbness. Patent was transferred to [facility] from [facility] for elevated troponins. ekg: NSR, 1st degree av block. Card: NSTEMI: Trops 0.6>3.3>13>16. PVCs on tele. No chest pain, denies shorntess of breath. Started on Lovenox weight based BID and convered to Heparin drip in anticipation of cardiac cath at [place]. Overnight given Plavix 300mg x 1, Lipitor 80mg x 1, Lovenox, ASA. Hypertension: on cozaar, toprol, norvasc. Monitor BP HLD: on lipitor Endocrine: Diabetes: uncontrolled, tightened SS, increased levemir. monitor BGMs. transfer to [place] for cardiac cath. 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 Referrals: Carlos Abbott MD [Primary Care Provider] - Fracisco Adams MD [Staff Physician] - Disposition: TRANSFER ACUTE CARE/OTHER HOSP - Home Medications Comprehensive Discharge Medication List: Ambulatory Orders Amlodipine Besylate 1 tab PO DAILY 06/20/18 Aspirin [ASA -] 325 mg PO DAILY 06/20/18 Losartan/Hydrochlorothiazide [Losartan-Hctz 100-25 mg Tab] 1 each PO DAILY 06/20 Metoprolol Succinate [Toprol Xl -] 100 mg PO DAILY 06/20/18 This patient is new to me today: Yes Date on this admission: 06/21/18 Emergency Visit: Yes ED Registration Date: 06/21/18 Care time: The patient presented to the Emergency Department on the above date and was hospitalized for further evaluation of their emergent condition. Critical Care patient: No - Discharge Referral Referred to [facility] Med P.C.: No
--- NOTE | 2018-06-21 21:55 | EKG ---
Test Reason : Blood Pressure : / mmHG Vent. Rate : 077 BPM Atrial Rate : 077 BPM P-R Int : 218 ms QRS Dur : 122 ms QT Int : 446 ms P-R-T Axes : 040 -60 -31 degrees QTc Int : 504 ms SINUS RHYTHM WITH 1ST DEGREE A-V BLOCK LEFT ANTERIOR FASCICULAR BLOCK LEFT VENTRICULAR HYPERTROPHY WITH QRS WIDENING POSSIBLE LATERAL INFARCT (CITED ON OR BEFORE 21-JUN-2018) CANNOT RULE OUT INFERIOR INFARCT (CITED ON OR BEFORE 21-JUN-2018) ABNORMAL ECG WHEN COMPARED WITH ECG OF 21-JUN-2018 02:05, RIGHT BUNDLE BRANCH BLOCK IS NO LONGER PRESENT Confirmed by MAIKEL CHANG, APRYL ([id number]) on 06/21/2018 9:54:53 PM Referred By: Mariano CAMACHO Confirmed By:APRYL KO MD
--- NOTE | 2018-06-21 21:56 | EKG ---
Test Reason : Blood Pressure : / mmHG Vent. Rate : 080 BPM Atrial Rate : 080 BPM P-R Int : 224 ms QRS Dur : 124 ms QT Int : 396 ms P-R-T Axes : 047 -61 014 degrees QTc Int : 456 ms SINUS RHYTHM WITH 1ST DEGREE A-V BLOCK RIGHT BUNDLE BRANCH BLOCK LEFT ANTERIOR FASCICULAR BLOCK BIFASCICULAR BLOCK LEFT VENTRICULAR HYPERTROPHY WITH REPOLARIZATION ABNORMALITY POSSIBLE LATERAL INFARCT , AGE UNDETERMINED CANNOT RULE OUT INFERIOR INFARCT (MASKED BY FASCICULAR BLOCK?) , AGE UNDETERMINED ABNORMAL ECG WHEN COMPARED WITH ECG OF 20-JUN-2018 06:12, RIGHT BUNDLE BRANCH BLOCK HAS REPLACED NON-SPECIFIC INTRA-VENTRICULAR CONDUCTION BLOCK BORDERLINE CRITERIA FOR LATERAL INFARCT ARE NOW PRESENT MINIMAL CRITERIA FOR INFERIOR INFARCT ARE NOW PRESENT Confirmed by APRYL KO MD ([id number]) on 06/21/2018 9:55:55 PM Referred By: Confirmed By:APRYL KO MD
[2018-06-21] MEDS ORDERED: INSULIN (LEVEMIR) 100 UNITS/ML UNITS SQ SCH (22:00)
[2018-06-21] MEDS ORDERED: ATORVASTATIN CA 80 MG TABLET (FP) PO SCH (22:00)
[2018-06-22 01:21] VITALS: BP 188/85; PULSE 63; TEMP 98.1
== END 2018-06-21 16:30 | disposition short-term general hospital (02) | DRG 281 ==
LOC: FER 06:07 → FM/S 10:08 → J4W 06-21 00:35 → OBSVTOIN 06-21 14:01
PROVIDERS: ADMIT Internal Medicine; ATTEND Nurse Practitioner Acute Care
DX: I21.4 Non-ST elevation (NSTEMI) myocardial infarction (principal); Z68.41 Body mass index [BMI] 40.0-44.9, adult; E87.1 Hypo-osmolality and hyponatremia; E11.9 Type 2 diabetes mellitus without complications; I10 Essential (primary) hypertension; I44.0 Atrioventricular block, first degree; F41.9 Anxiety disorder, unspecified; E11.65 Type 2 diabetes mellitus with hyperglycemia; E66.01 Morbid (severe) obesity due to excess calories; Z87.891 Personal history of nicotine dependence
CPT/HCPCS: 36415; 71045-TC-FY; 80053; 80061; 81003; 81015; 82550; 82962; 83036; 83735; 84484; 85025; 85610; 93005; 93010; 99285-25; G0378; J1644; J7030

== ENCOUNTER 2024-02-12 18:42 | Inpatient (IN) | payer OTHER ==
[2024-02-12] MEDS ORDERED: ACETAMINOPHEN INJECTION 100 ML IVPB ONE (19:35)
[2024-02-12] MEDS: SODIUM CHLORIDE 1,000 ML IV ONE (19:37)
[2024-02-12] MEDS: ACETAMINOPHEN 500 MG TABLET (FP) PO ONE (19:37)
[2024-02-12] MEDS: ACETAMINOPHEN 1000 MG/100 ML BAG IVPB ONE (19:37)
[2024-02-12 19:44] LABS: HEMATOCRIT 38.2 % (35.4-49); HEMOGLOBIN 12.8 G/dL (11.7-16.9); MCH 27.6 pg (25.7-33.7); MCHC 33.4 g/dl (32.0-35.9); MEAN CELL VOLUME 82.7 fl (80-96); MEAN PLT VOLUME 8.3 fl (7.5-11.1); PLATELET COUNT 298.8 10^3/uL (134-434); RBC 4.62 10^6/uL (4.00-5.60); RDW 15.4 % (11.9-15.9); WHITE BLOOD COUNT 15.7 10^3/uL (4.0-10.8)
[2024-02-12 19:49] LABS: EPITHELIAL CELLS 0-5 /hpf
[2024-02-12 20:08] LABS: ALBUMIN 3.6 g/dl (3.4-5.0); BILIRUBIN,TOTAL 0.8 mg/dl (0.2-1); CALCIUM 8.5 mg/dl (8.5-10.1); CREATININE 0.9 mg/dl (0.6-1.3); POTASSIUM 3.2 mmol/L (3.5-5.1); TOT PROT 6.2 g/dl (6.4-8.2)
[2024-02-12] MEDS ORDERED: PIPERACILLIN/TAZOBACTAM 4.5 GM VIAL IVPB ONE (21:29)
[2024-02-12] MEDS ORDERED: CEFEPIME HCL 2 GM VIAL (RESTRICTED TO ID) ONE (21:50)
[2024-02-12] MEDS: CEFEPIME HCL 2 GM VIAL (RESTRICTED TO ID) IVPB STA (22:30)
[2024-02-12 22:53] LABS: INR 1.96 (0.83-1.09); PROTHROMBIN TIME (PATIENT) 22.6 SEC (9.7-13.0)
[2024-02-13 04:30] VITALS: BMI 36.8
[2024-02-13] MEDS ORDERED: ACETAMINOPHEN 1000 MG/100 ML BAG IVPB PRN (05:36)
[2024-02-13] MEDS: SODIUM CHLORIDE 1,000 ML IV SCH (05:55)
[2024-02-13] MEDS: INSULIN ASPART SLIDING SCALE (NOVOLOG) 1 VIAL SQ SCH (06:11)
[2024-02-13] MEDS ORDERED: INSULIN (NOVOLOG) ASPART 100 UNITS/ML 10ML VIAL ONE (06:37)
[2024-02-13] MEDS: CEFEPIME HCL 2 GM VIAL (RESTRICTED TO ID) IVPB SCH (07:42)
[2024-02-13 08:47] LABS: BASO % 0.3 % (0-2.0); EOS % 0.1 % (0-4.5); HEMATOCRIT 34.8 % (35.4-49); HEMOGLOBIN 11.7 GM/dL (11.7-16.9); LYMPH % 7.5 % (8-40); MCH 27.6 pg (25.7-33.7); MCHC 33.7 g/dl (32.0-35.9); MEAN CELL VOLUME 81.9 fl (80-96); MEAN PLT VOLUME 8.2 fl (7.5-11.1); MONO % 9.7 % (3.8-10.2); NEUT % 82.4 % (42.8-82.8); PLATELET COUNT 335 10^3/uL (134-434); RBC 4.25 M/mm3 (4.00-5.60); WHITE BLOOD COUNT 14.7 K/mm3 (4.0-10.0)
[2024-02-13 09:04] LABS: POTASSIUM 3.2 mmol/L (3.5-5.1)
[2024-02-13 09:10] LABS: BLOOD UREA NITROGEN 14.3 mg/dL (7-18)
[2024-02-13 09:11] LABS: ALBUMIN 2.6 g/dl (3.4-5.0)
[2024-02-13 09:13] LABS: CREATININE 0.8 mg/dL (0.55-1.3)
[2024-02-13 09:15] LABS: BILIRUBIN,TOTAL 0.7 mg/dL (0.2-1); TOT PROT 6.2 g/dl (6.4-8.2)
[2024-02-13] MEDS: CEFEPIME 2 GM in DEXTROSE 5%-WATER 100 ML IVPB SCH ×2 (10:25→12:57)
[2024-02-13] MEDS: KCL 10 MEQ IVPB 10 MEQ/100 ML INFUS.BAG IVPB SCH (11:02)
[2024-02-13] MEDS: BUDESONIDE/FORMETEROL FUMARATE 160/4.5 mcg INHALER IH SCH (11:12)
[2024-02-13] MEDS ORDERED: MIDAZOLAM HCL 2 MG/2 ML SINGLE DOSE VIAL ONE (15:05)
[2024-02-13] MEDS ORDERED: FENTANYL CITRATE/PF 50 MCG/ML VIAL ONE (15:05)
[2024-02-13] MEDS: SODIUM CHLORIDE 500 ML IV SCH (15:31)
[2024-02-13] MEDS: MIDAZOLAM HCL 2 MG/2 ML SINGLE DOSE VIAL IVPUSH SCH (15:55)
[2024-02-13] MEDS: FENTANYL CITRATE/PF 50 MCG/ML VIAL IVPUSH SCH (15:55)
[2024-02-13] MEDS: CEFEPIME 1 GM in DEXTROSE 5%-WATER 100 ML IVPB SCH (18:26)
[2024-02-13] MEDS: ACETAMINOPHEN 1000 MG/100 ML BAG IVPB PRN (19:08)
[2024-02-13] MEDS: ROSUVASTATIN CA 20 MG TABLET PO SCH (21:57)
[2024-02-13] MEDS: ENOXAPARIN NA (PORCINE) 120 MG/0.8 ML DISP.SYRIN SQ SCH (21:57)
[2024-02-14] MEDS: ACETAMINOPHEN 1000 MG/100 ML BAG IVPB PRN (08:48)
[2024-02-14] MEDS: PANTOPRAZOLE 40 MG TABLET PO SCH (09:45)
[2024-02-14] MEDS: ASPIRIN COATED 81 MG TABLET.EC PO SCH (09:45)
[2024-02-14] MEDS ORDERED: FUROSEMIDE 20 MG TABLET (FP) PO SCH (10:00)
[2024-02-14 10:21] LABS: BASO % 0.4 % (0-2.0); EOS % 0.6 % (0-4.5); HEMATOCRIT 34.9 % (35.4-49); HEMOGLOBIN 11.7 GM/dL (11.7-16.9); LYMPH % 9.6 % (8-40); MCH 27.5 pg (25.7-33.7); MCHC 33.5 g/dl (32.0-35.9); MEAN CELL VOLUME 82.2 fl (80-96); MEAN PLT VOLUME 8.5 fl (7.5-11.1); MONO % 9.5 % (3.8-10.2); NEUT % 79.9 % (42.8-82.8); PLATELET COUNT 348 10^3/uL (134-434); RBC 4.24 M/mm3 (4.00-5.60); RDW 15.1 % (11.9-15.9); WHITE BLOOD COUNT 12.3 K/mm3 (4.0-10.0)
[2024-02-14 10:37] LABS: POTASSIUM 3.6 mmol/L (3.5-5.1)
[2024-02-14 10:43] LABS: CALCIUM 8.5 mg/dL (8.5-10.1)
[2024-02-14 10:45] LABS: ALBUMIN 2.5 g/dl (3.4-5.0); BLOOD UREA NITROGEN 14.8 mg/dL (7-18); MAGNESIUM 1.7 mg/dL (1.8-2.4)
[2024-02-14 10:48] LABS: CREATININE 0.7 mg/dL (0.55-1.3); TOT PROT 6.2 g/dl (6.4-8.2)
[2024-02-14 10:50] LABS: BILIRUBIN,TOTAL 0.7 mg/dL (0.2-1)
[2024-02-14] MEDS ORDERED: INSULIN (NOVOLOG) ASPART 100 UNITS/ML 10ML VIAL ONE (16:51)
[2024-02-14] MEDS: ACETAMINOPHEN 1000 MG/100 ML BAG IVPB ONE (20:55)
[2024-02-14] MEDS: SENNOSIDES 8.6MG TABLET (FP) PO PRN (21:28)
[2024-02-14] MEDS: VANCOMYCIN/WATER 1250 MG 1,250 MG/250 ML BAG IVPB SCH (21:28)
[2024-02-15 09:15] LABS: BASO % 0.4 % (0-2.0); EOS % 0.7 % (0-4.5); HEMATOCRIT 36.7 % (35.4-49); HEMOGLOBIN 12.4 GM/dL (11.7-16.9); LYMPH % 9.1 % (8-40); MCH 27.5 pg (25.7-33.7); MCHC 33.8 g/dl (32.0-35.9); MEAN CELL VOLUME 81.4 fl (80-96); MEAN PLT VOLUME 8.3 fl (7.5-11.1); MONO % 9.1 % (3.8-10.2); NEUT % 80.7 % (42.8-82.8); PLATELET COUNT 433 10^3/uL (134-434); RBC 4.51 M/mm3 (4.00-5.60); RDW 15.5 % (11.9-15.9); WHITE BLOOD COUNT 13.1 K/mm3 (4.0-10.0)
[2024-02-15 10:02] LABS: ALBUMIN 2.7 g/dl (3.4-5.0); BLOOD UREA NITROGEN 13.6 mg/dL (7-18); CALCIUM 9.1 mg/dL (8.5-10.1); MAGNESIUM 1.8 mg/dL (1.8-2.4)
[2024-02-15 10:05] LABS: CREATININE 0.8 mg/dL (0.55-1.3)
[2024-02-15 10:08] LABS: BILIRUBIN,TOTAL 0.8 mg/dL (0.2-1); TOT PROT 6.7 g/dl (6.4-8.2)
[2024-02-15] MEDS ORDERED: INSULIN (NOVOLOG) ASPART 100 UNITS/ML 10ML VIAL ONE (21:17)
[2024-02-16 08:43] LABS: BASO % 0.4 % (0-2.0); EOS % 0.7 % (0-4.5); HEMATOCRIT 35.2 % (35.4-49); HEMOGLOBIN 11.7 GM/dL (11.7-16.9); LYMPH % 10.8 % (8-40); MCH 27.4 pg (25.7-33.7); MCHC 33.2 g/dl (32.0-35.9); MEAN CELL VOLUME 82.6 fl (80-96); MEAN PLT VOLUME 8.3 fl (7.5-11.1); MONO % 9.7 % (3.8-10.2); NEUT % 78.4 % (42.8-82.8); PLATELET COUNT 443 10^3/uL (134-434); RBC 4.26 M/mm3 (4.00-5.60); RDW 15.4 % (11.9-15.9); WHITE BLOOD COUNT 11.1 K/mm3 (4.0-10.0)
[2024-02-16 09:14] LABS: POTASSIUM 3.6 mmol/L (3.5-5.1)
[2024-02-16 09:19] LABS: CALCIUM 8.3 mg/dL (8.5-10.1)
[2024-02-16 09:20] LABS: ALBUMIN 2.5 g/dl (3.4-5.0); BLOOD UREA NITROGEN 12.5 mg/dL (7-18); MAGNESIUM 1.6 mg/dL (1.8-2.4)
[2024-02-16 09:24] LABS: BILIRUBIN,TOTAL 0.9 mg/dL (0.2-1); CREATININE 0.7 mg/dL (0.55-1.3); TOT PROT 6.2 g/dl (6.4-8.2)
[2024-02-16] MEDS: FUROSEMIDE 20 MG TABLET (FP) PO SCH (10:40)
[2024-02-16] MEDS: POLYETHYLENE GLYCOL (HEALTHYLAX) 3350 17 GM PACKET PO SCH (10:40)
[2024-02-16 17:13] VITALS: BP 119/67; PULSE 79; RESP 20; TEMP 97.7
== END 2024-02-16 17:15 | disposition home or self-care (01) | DRG 391 ==
LOC: FER 18:42 → J8W 02-13 00:50
PROVIDERS: ADMIT Student in an Organized Health Care Education/Training Program; ATTEND Internal Medicine
PROC: 0W9G30Z Drainage of Peritoneal Cavity with Drainage Device, Percutaneous Approach (ICD-10-PCS; principal; 2024-02-13)
DX: K57.20 Diverticulitis of large intestine with perforation and abscess without bleeding (principal); K65.1 Peritoneal abscess; I10 Essential (primary) hypertension; E78.5 Hyperlipidemia, unspecified; I48.91 Unspecified atrial fibrillation; E11.51 Type 2 diabetes mellitus with diabetic peripheral angiopathy without gangrene; E87.6 Hypokalemia; J45.909 Unspecified asthma, uncomplicated; I25.10 Atherosclerotic heart disease of native coronary artery without angina pectoris; Z95.5 Presence of coronary angioplasty implant and graft; E66.9 Obesity, unspecified; Z68.36 Body mass index [BMI] 36.0-36.9, adult
CPT/HCPCS: 0241U-QW; 36415; 49406; 71045-TC-FY; 74177-TC; 77012-TC; 80048; 80053; 81003; 81015; 82962; 83735; 85025; 85027; 85610; 86140; 86850; 86900; 86901; 87070; 87075; 87076; 87102; 87116; 87205; 87206; 87210; 93005; 94010; 99285-25; G0480; J0131; Q9967

== ENCOUNTER 2024-04-04 10:55 | Emergency (ER) | payer OTHER ==
[2024-04-04 11:17] VITALS: BP 150/96; PULSE 81; RESP 18; TEMP 99.3; BMI 34.9
[2024-04-04] MEDS ORDERED: ACETAMINOPHEN 500 MG TABLET (FP) ONE (11:50)
[2024-04-04] MEDS: ACETAMINOPHEN 500 MG TABLET (FP) PO ONE (11:52)
[2024-04-04] MEDS ORDERED: CEPHALEXIN MONOHYDRATE 500 MG CAPSULE (UD) ONE (13:46)
[2024-04-04] MEDS: CEPHALEXIN MONOHYDRATE 500 MG CAPSULE (UD) PO ONE (13:48)
== END 2024-04-04 13:49 | disposition home or self-care (01) ==
LOC: FER 10:55
DX: L03.116 Cellulitis of left lower limb (principal)
CPT/HCPCS: 73610-TC-LT-FY; 73630-TC-LT; 99283-25

== ENCOUNTER 2024-06-20 11:29 | Inpatient (IN) | payer OTHER ==
[2024-06-20 12:33] LABS: HEMOGLOBIN 12.5 G/dL (11.7-16.9); MCH 26.8 pg (25.7-33.7); MCHC 32.9 g/dl (32.0-35.9); MEAN CELL VOLUME 81.3 fl (80-96); MEAN PLT VOLUME 8.2 fl (7.5-11.1); RBC 4.67 10^6/uL (4.00-5.60); RDW 15.9 % (11.9-15.9); WHITE BLOOD COUNT 13.1 10^3/uL (4.0-10.8)
[2024-06-20 12:36] LABS: URIC ACID CRYSTALS FEW /hpf (NONE SEEN)
[2024-06-20 12:47] LABS: ALBUMIN 3.7 g/dl (3.4-5.0); BILIRUBIN,TOTAL 0.8 mg/dl (0.2-1); CALCIUM 8.9 mg/dl (8.5-10.1); CREATININE 0.7 mg/dl (0.6-1.3); POTASSIUM 3.5 mmol/L (3.5-5.1); TOT PROT 6.8 g/dl (6.4-8.2)
[2024-06-20 13:01] LABS: PLATELET ESTIMATE ADEQUATE
[2024-06-20] MEDS: LACTATED RINGERS SOLUTION 1,000 ML/1,000 ML INFUS.BAG IV SCH (18:31)
[2024-06-20] MEDS: CEFTRIAXONE 1 GM in DEXTROSE 5%-WATER - 50 ML IVPB SCH (20:42)
[2024-06-20] MEDS: SODIUM CHLORIDE 1,000 ML IV SCH (21:43)
[2024-06-20] MEDS: PIPERACILLIN/TAZOB 3.375 GM 3.375 GM in DEXTROSE 5%-WATER - 50 ML IVPB SCH ×2 (22:41→23:41)
[2024-06-20 23:51] VITALS: BMI 40.1
[2024-06-21] MEDS: INSULIN ASPART SLIDING SCALE (NOVOLOG) 1 VIAL SQ SCH (06:35)
[2024-06-21 08:21] LABS: BASO % 0.4 % (0-2.0); EOS % 0.3 % (0-4.5); HEMATOCRIT 33.7 % (35.4-49); HEMOGLOBIN 11.3 GM/dL (11.7-16.9); INR 1.48 (0.83-1.09); LYMPH % 12.3 % (8-40); MCH 26.6 pg (25.7-33.7); MCHC 33.5 g/dl (32.0-35.9); MEAN CELL VOLUME 79.4 fl (80-96); MEAN PLT VOLUME 7.8 fl (7.5-11.1); MONO % 12.8 % (3.8-10.2); NEUT % 74.2 % (42.8-82.8); PLATELET COUNT 409 10^3/uL (134-434); PROTHROMBIN TIME (PATIENT) 16.5 SEC (9.7-13.0); RBC 4.24 M/mm3 (4.00-5.60); RDW 16.1 % (11.9-15.9); WHITE BLOOD COUNT 8.8 K/mm3 (4.0-10.0)
[2024-06-21 08:23] LABS: POTASSIUM 3.6 mmol/L (3.5-5.1)
[2024-06-21 08:26] LABS: CALCIUM 8.6 mg/dL (8.5-10.1)
[2024-06-21 08:27] LABS: BLOOD UREA NITROGEN 13.6 mg/dL (7-18); MAGNESIUM 1.6 mg/dL (1.8-2.4)
[2024-06-21 08:30] LABS: CREATININE 0.7 mg/dL (0.55-1.3); PHOSPHOROUS 3.4 mg/dL (2.5-4.9)
[2024-06-21 09:26] LABS: MAGNESIUM 1.4 mg/dL (1.8-2.4)
[2024-06-21] MEDS: LOSARTAN POTASSIUM 50 MG TABLET PO SCH (09:26)
[2024-06-21] MEDS: FAMOTIDINE 20 MG TABLET PO SCH (09:26)
[2024-06-21] MEDS: amLODIPine BESYLATE 10 MG TABLET (FP) PO SCH (09:27)
[2024-06-21] MEDS: HYDROCHLOROTHIAZIDE 25 MG TABLET (FP) PO SCH (09:27)
[2024-06-21] MEDS: BUDESONIDE/FORMETEROL FUMARATE 80/4.5 mcg INHALER IH SCH (09:27)
[2024-06-21] MEDS ORDERED: PATIENT'S OWN MEDICATION (NON-FORMULARY) (Olmesartan/Amlodipin/Hcthiazid [Olmsrtn-Amldpn-H PO SCH (10:00)
[2024-06-21] MEDS ORDERED: ALBUTEROL SO4 HFA INHALER IH PRN (10:00)
[2024-06-21] MEDS: MAGNESIUM SULFATE IN WATER 2 GM/50 ML IVPB IVPB ONE (14:03)
[2024-06-21] MEDS: ACETAMINOPHEN 500 MG TABLET (FP) PO PRN (15:07)
[2024-06-21] MEDS ORDERED: INSULIN ASPART SLIDING SCALE (NOVOLOG) 1 VIAL SQ ONE (16:59)
[2024-06-21] MEDS: ROSUVASTATIN CA 20 MG TABLET PO SCH (21:24)
[2024-06-22] MEDS: ASPIRIN COATED 81 MG TABLET.EC PO SCH (09:14)
[2024-06-22 10:29] LABS: BASO % 0.4 % (0-2.0); EOS % 0.6 % (0-4.5); HEMATOCRIT 33.6 % (35.4-49); HEMOGLOBIN 11.5 GM/dL (11.7-16.9); LYMPH % 13.7 % (8-40); MCH 26.7 pg (25.7-33.7); MCHC 34.1 g/dl (32.0-35.9); MEAN CELL VOLUME 78.4 fl (80-96); MEAN PLT VOLUME 8.1 fl (7.5-11.1); MONO % 12.2 % (3.8-10.2); NEUT % 73.1 % (42.8-82.8); PLATELET COUNT 460 10^3/uL (134-434); RBC 4.29 M/mm3 (4.00-5.60); RDW 15.9 % (11.9-15.9); WHITE BLOOD COUNT 8.3 K/mm3 (4.0-10.0)
[2024-06-22 10:40] LABS: POTASSIUM 3.7 mmol/L (3.5-5.1)
[2024-06-22 10:49] LABS: BLOOD UREA NITROGEN 12.7 mg/dL (7-18)
[2024-06-22 10:50] LABS: MAGNESIUM 1.9 mg/dL (1.8-2.4)
[2024-06-22 10:52] LABS: CREATININE 0.6 mg/dL (0.55-1.3)
[2024-06-22 10:54] LABS: BILIRUBIN,TOTAL 0.9 mg/dL (0.2-1); TOT PROT 6.8 g/dl (6.4-8.2)
[2024-06-22] MEDS: RIVAROXABAN 20 MG TABLET PO SCH (18:24)
[2024-06-22 22:56] VITALS: TEMP 98.2
[2024-06-23 06:17] VITALS: BP 145/84; PULSE 80; RESP 18
[2024-06-23 09:00] LABS: BASO % 0.6 % (0-2.0); EOS % 0.9 % (0-4.5); HEMATOCRIT 34.7 % (35.4-49); HEMOGLOBIN 11.8 GM/dL (11.7-16.9); LYMPH % 15.3 % (8-40); MCHC 34.1 g/dl (32.0-35.9); MEAN CELL VOLUME 79.3 fl (80-96); MEAN PLT VOLUME 7.8 fl (7.5-11.1); MONO % 11.1 % (3.8-10.2); NEUT % 72.1 % (42.8-82.8); PLATELET COUNT 475 10^3/uL (134-434); RBC 4.38 M/mm3 (4.00-5.60); RDW 15.5 % (11.9-15.9); WHITE BLOOD COUNT 8.4 K/mm3 (4.0-10.0)
[2024-06-23 09:18] LABS: POTASSIUM 3.7 mmol/L (3.5-5.1)
[2024-06-23 09:20] LABS: ALBUMIN 3.1 g/dl (3.4-5.0); BLOOD UREA NITROGEN 11.3 mg/dL (7-18); CALCIUM 9.1 mg/dL (8.5-10.1); MAGNESIUM 1.6 mg/dL (1.8-2.4)
[2024-06-23 09:24] LABS: CREATININE 0.7 mg/dL (0.55-1.3)
[2024-06-23 09:25] LABS: BILIRUBIN,TOTAL 0.6 mg/dL (0.2-1)
[2024-06-23] MEDS: MAGNESIUM OXIDE 400 MG TABLET (FP) PO ONE (11:46)
== END 2024-06-23 14:37 | disposition home or self-care (01) | DRG 392 ==
LOC: FER 11:29 → J8W 19:57 → FER 20:15 → J8W 20:17
PROVIDERS: ADMIT Internal Medicine; ATTEND Nurse Practitioner Family
DX: K57.80 Diverticulitis of intestine, part unspecified, with perforation and abscess without bleeding (principal); E87.1 Hypo-osmolality and hyponatremia; Z68.41 Body mass index [BMI] 40.0-44.9, adult; I48.91 Unspecified atrial fibrillation; I10 Essential (primary) hypertension; E78.5 Hyperlipidemia, unspecified; E11.9 Type 2 diabetes mellitus without complications; J45.909 Unspecified asthma, uncomplicated; E66.01 Morbid (severe) obesity due to excess calories; I25.10 Atherosclerotic heart disease of native coronary artery without angina pectoris; Z95.5 Presence of coronary angioplasty implant and graft
CPT/HCPCS: 36415; 74177-TC; 80048; 80053; 81003; 81015; 82962; 83036; 83690; 83735; 84100; 85025; 85027; 85610; 86140; 86850; 86900; 86901; 87086; 93005; 93010; 99285-25; Q9967

== ENCOUNTER 2024-07-18 13:14 | Inpatient (IN) | payer OTHER ==
[2024-07-18 13:28] VITALS: BMI 40.1
[2024-07-18 15:07] LABS: HEMATOCRIT 36.5 % (35.4-49); HEMOGLOBIN 11.7 GM/dL (11.7-16.9); MCH 26.3 pg (25.7-33.7); MEAN CELL VOLUME 82.2 fl (80-96); MEAN PLT VOLUME 8.3 fl (7.5-11.1); PLATELET COUNT 384 10^3/uL (134-434); RBC 4.44 M/mm3 (4.00-5.60); RDW 17.2 % (11.9-15.9); WHITE BLOOD COUNT 11.7 K/mm3 (4.0-10.0)
[2024-07-18 15:32] LABS: POTASSIUM 3.6 mmol/L (3.5-5.1)
[2024-07-18 15:34] LABS: BLOOD UREA NITROGEN 15.6 mg/dL (7-18); CALCIUM 9.1 mg/dL (8.5-10.1)
[2024-07-18 15:37] LABS: CREATININE 0.8 mg/dL (0.55-1.3)
[2024-07-18 15:39] LABS: BILIRUBIN,TOTAL 0.7 mg/dL (0.2-1); TOT PROT 7.2 g/dl (6.4-8.2)
[2024-07-18 15:42] LABS: LACTIC ACID 3.3 mmol/L (0.4-2.0)
[2024-07-18 15:46] LABS: INR 1.58 (0.83-1.09); PROTHROMBIN TIME (PATIENT) 17.9 SEC (9.7-13.0)
[2024-07-18 15:48] LABS: ACTIVATED PTT 44.1 SECONDS (25.2-36.5)
[2024-07-18] MEDS: SODIUM CHLORIDE 1,000 ML IV STA (16:53)
[2024-07-18] MEDS ORDERED: ACETAMINOPHEN INJECTION 100 ML ONE (17:39)
[2024-07-18] MEDS: ACETAMINOPHEN 1000 MG/100 ML BAG IVPB ONE (18:03)
[2024-07-18] MEDS ORDERED: PIPERACILLIN/TAZOB 4.5 GM 4.5 GM/100 ML BAG IVPB ONE (18:25)
[2024-07-18] MEDS: PIPERACILLIN/TAZOB 4.5 GM 4.5 GM in DEXTROSE 5%-WATER 100 ML IVPB ONE (18:37)
[2024-07-18] MEDS ORDERED: ACETAMINOPHEN 325 MG TABLET (FP) PO PRN (21:15)
[2024-07-18] MEDS ORDERED: INSULIN ASPART SLIDING SCALE (NOVOLOG) 1 VIAL SQ SCH (21:45)
[2024-07-18] MEDS ORDERED: ROSUVASTATIN CA 20 MG TABLET ONE (22:28)
[2024-07-18] MEDS: ROSUVASTATIN CA 20 MG TABLET PO SCH (22:39)
[2024-07-18] MEDS: LACTATED RINGERS SOLUTION 1,000 ML IV SCH (22:39)
[2024-07-18] MEDS: INSULIN ASPART SLIDING SCALE (NOVOLOG) 1 VIAL SQ SCH (22:39)
[2024-07-19] MEDS ORDERED: PIPERACILLIN/TAZOB 3.375 GM 3.375 GM/50 ML BAG IVPB ONE ×2 (02:06→10:11)
[2024-07-19] MEDS: PIPERACILLIN/TAZOB 3.375 GM 3.375 GM in DEXTROSE 5%-WATER - 50 ML IVPB SCH (02:37)
[2024-07-19 07:40] LABS: HEMATOCRIT 33.8 % (35.4-49); HEMOGLOBIN 11.1 GM/dL (11.7-16.9); MCH 26.7 pg (25.7-33.7); MCHC 32.8 g/dl (32.0-35.9); MEAN CELL VOLUME 81.3 fl (80-96); MEAN PLT VOLUME 8.3 fl (7.5-11.1); PLATELET COUNT 364 10^3/uL (134-434); RBC 4.16 M/mm3 (4.00-5.60); RDW 16.5 % (11.9-15.9); WHITE BLOOD COUNT 13.4 K/mm3 (4.0-10.0)
[2024-07-19 07:46] LABS: POTASSIUM 3.3 mmol/L (3.5-5.1)
[2024-07-19 07:47] LABS: ALBUMIN 2.7 g/dl (3.4-5.0); BLOOD UREA NITROGEN 10.4 mg/dL (7-18); CALCIUM 8.7 mg/dL (8.5-10.1); MAGNESIUM 1.4 mg/dL (1.8-2.4)
[2024-07-19 07:51] LABS: CREATININE 0.7 mg/dL (0.55-1.3)
[2024-07-19 07:52] LABS: PHOSPHOROUS 3.3 mg/dL (2.5-4.9)
[2024-07-19 07:53] LABS: TOT PROT 6.5 g/dl (6.4-8.2)
[2024-07-19] MEDS: FAMOTIDINE 40 MG TABLET PO SCH (10:00)
[2024-07-19] MEDS: LOSARTAN POTASSIUM 50 MG TABLET PO SCH (10:00)
[2024-07-19] MEDS: amLODIPine BESYLATE 10 MG TABLET (FP) PO SCH (10:00)
[2024-07-19] MEDS: HYDROCHLOROTHIAZIDE 25 MG TABLET (FP) PO SCH (10:00)
[2024-07-19] MEDS ORDERED: amLODIPine BESYLATE 10 MG TABLET (FP) ONE (10:11)
[2024-07-19] MEDS ORDERED: hydrALAZINE HCL 25 MG TABLET (FP) ONE (10:11)
[2024-07-19] MEDS ORDERED: FAMOTIDINE 20 MG TABLET ONE (10:11)
[2024-07-19] MEDS ORDERED: LOSARTAN POTASSIUM 50 MG TABLET ONE (10:11)
[2024-07-19] MEDS ORDERED: HYDROCHLOROTHIAZIDE 25 MG TABLET (FP) ONE (10:25)
[2024-07-19] MEDS ORDERED: INSULIN ASPART SLIDING SCALE (NOVOLOG) 1 VIAL SQ ONE (12:49)
[2024-07-19] MEDS: PIPERACILLIN/TAZOB 4.5 GM 4.5 GM in DEXTROSE 5%-WATER 100 ML IVPB SCH (17:55)
[2024-07-20 10:47] LABS: BASO % 0.6 % (0-2.0); EOS % 0.8 % (0-4.5); HEMATOCRIT 35.7 % (35.4-49); HEMOGLOBIN 11.8 GM/dL (11.7-16.9); LYMPH % 13.3 % (8-40); MCH 26.9 pg (25.7-33.7); MCHC 33.1 g/dl (32.0-35.9); MEAN CELL VOLUME 81.4 fl (80-96); MONO % 9.2 % (3.8-10.2); NEUT % 76.1 % (42.8-82.8); PLATELET COUNT 444 10^3/uL (134-434); RBC 4.38 M/mm3 (4.00-5.60); RDW 16.7 % (11.9-15.9)
[2024-07-20 11:08] LABS: POTASSIUM 3.7 mmol/L (3.5-5.1)
[2024-07-20 11:24] LABS: ALBUMIN 2.9 g/dl (3.4-5.0); BLOOD UREA NITROGEN 7.7 mg/dL (7-18); CALCIUM 9.3 mg/dL (8.5-10.1)
[2024-07-20 11:26] LABS: CREATININE 0.7 mg/dL (0.55-1.3)
[2024-07-20 11:28] LABS: BILIRUBIN,TOTAL 0.8 mg/dL (0.2-1); TOT PROT 7.4 g/dl (6.4-8.2)
[2024-07-20] MEDS: PIPERACILLIN/TAZOB 3.375 GM 3.375 GM in DEXTROSE 5%-WATER - 50 ML IVPB SCH (13:03)
[2024-07-21 00:01] VITALS: RESP 18
[2024-07-21 09:53] LABS: INR 1.22 (0.83-1.09); PROTHROMBIN TIME (PATIENT) 13.7 SEC (9.7-13.0)
[2024-07-21 09:55] LABS: BASO % 0.4 % (0-2.0); EOS % 1.3 % (0-4.5); HEMATOCRIT 33.3 % (35.4-49); HEMOGLOBIN 11.2 GM/dL (11.7-16.9); LYMPH % 15.5 % (8-40); MCH 26.8 pg (25.7-33.7); MCHC 33.6 g/dl (32.0-35.9); MEAN CELL VOLUME 79.9 fl (80-96); NEUT % 72.8 % (42.8-82.8); PLATELET COUNT 448 10^3/uL (134-434); RBC 4.17 M/mm3 (4.00-5.60); RDW 16.7 % (11.9-15.9); WHITE BLOOD COUNT 6.3 K/mm3 (4.0-10.0)
[2024-07-21 10:09] LABS: POTASSIUM 3.7 mmol/L (3.5-5.1)
[2024-07-21 10:12] LABS: ALBUMIN 2.8 g/dl (3.4-5.0); MAGNESIUM 1.7 mg/dL (1.8-2.4)
[2024-07-21 10:13] LABS: BLOOD UREA NITROGEN 6.9 mg/dL (7-18)
[2024-07-21 10:15] LABS: CREATININE 0.8 mg/dL (0.55-1.3)
[2024-07-21 10:17] LABS: BILIRUBIN,TOTAL 0.6 mg/dL (0.2-1)
[2024-07-21 15:31] VITALS: BP 127/78; PULSE 82; TEMP 98.2
== END 2024-07-21 15:32 | disposition home or self-care (01) | DRG 392 ==
LOC: JER 13:14 → JERBED 17:30 → J8W 07-19 15:38
PROVIDERS: ADMIT Internal Medicine; ATTEND Nurse Practitioner Family
DX: K57.20 Diverticulitis of large intestine with perforation and abscess without bleeding (principal); Z68.41 Body mass index [BMI] 40.0-44.9, adult; E87.20 Acidosis, unspecified; I25.10 Atherosclerotic heart disease of native coronary artery without angina pectoris; K57.80 Diverticulitis of intestine, part unspecified, with perforation and abscess without bleeding; I10 Essential (primary) hypertension; E11.9 Type 2 diabetes mellitus without complications; I25.2 Old myocardial infarction; I48.91 Unspecified atrial fibrillation; Z79.01 Long term (current) use of anticoagulants; E66.01 Morbid (severe) obesity due to excess calories; J45.909 Unspecified asthma, uncomplicated; I44.0 Atrioventricular block, first degree; E87.6 Hypokalemia; Z79.84 Long term (current) use of oral hypoglycemic drugs; I87.2 Venous insufficiency (chronic) (peripheral)
CPT/HCPCS: 0241U-QW; 36415; 74177-TC; 80053; 82962; 83605; 83735; 84100; 85025; 85027; 85610; 85651; 85730; 86140; 87040; 93005; 93010; 99285-25; J0131; Q9967

== ENCOUNTER 2024-08-17 08:00 | Inpatient (IN) | payer OTHER ==
[2024-08-24] MEDS ORDERED: PEG 3350/NA SULF BICARB CL/KCL 4000 ML SOLN.RECON PO ONE (08:14)
[2024-08-24] MEDS: PEG 3350/NA SULF BICARB CL/KCL 4000 ML SOLN.RECON PO ONE ×2 (09:19→20:41)
[2024-08-24] MEDS ORDERED: BUDESONIDE/FORMETEROL FUMARATE 80/4.5 mcg INHALER IH SCH (10:00)
[2024-08-24] MEDS ORDERED: PATIENT'S OWN MEDICATION (NON-FORMULARY) (Olmesartan/Amlodipin/Hcthiazid [Olmsrtn-Amldpn-H PO SCH (10:00)
[2024-08-24] MEDS ORDERED: ALBUTEROL SO4 HFA INHALER IH PRN (10:00)
[2024-08-24] MEDS: HYDROCHLOROTHIAZIDE 25 MG TABLET (FP) PO SCH (11:52)
[2024-08-24] MEDS: amLODIPine BESYLATE 10 MG TABLET (FP) PO SCH (11:53)
[2024-08-24] MEDS: LOSARTAN POTASSIUM 50 MG TABLET PO SCH (11:53)
[2024-08-24] MEDS: HEPARIN NA (PORCINE) 5,000 UNITS/ML 1ML VIAL SQ SCH (11:57)
[2024-08-24] MEDS: POLYETHYLENE GLYCOL (HEALTHYLAX) 3350 17 GM PACKET PO ONE (12:02)
[2024-08-24] MEDS: BISACODYL 10 MG SUPP.RECT PR ONE (12:02)
[2024-08-24] MEDS: FAMOTIDINE 40 MG TABLET PO SCH (12:02)
[2024-08-24] MEDS: TRANEXAMIC ACID 1000 MG/10 ML VIAL IVPUSH ONE (12:30)
[2024-08-24] MEDS: INSULIN ASPART SLIDING SCALE (NOVOLOG) 1 VIAL SQ SCH (13:29)
[2024-08-24 19:38] VITALS: BMI 39.7
[2024-08-24] MEDS: metroNIDAZOLE 250 MG TABLET PO SCH (19:40)
[2024-08-24] MEDS: ACETAMINOPHEN 500 MG TABLET (FP) PO PRN (20:39)
[2024-08-24] MEDS: NEOMYCIN SO4 500 MG TABLET PO SCH (20:40)
[2024-08-24] MEDS: POLYETHYLENE GLYCOL 3350 255 GM BTL PO ONE (20:41)
[2024-08-24] MEDS: CEFAZOLIN 2 GM/D5W 2 GM/50 ML ML IVPB ONE (22:48)
[2024-08-24] MEDS: HEPARIN NA (PORCINE) 5,000 UNITS/ML 1ML VIAL SQ ONE (22:48)
[2024-08-24] MEDS: ELECTROLYTE-148 SOLN 1,000 ML IV SCH (22:48)
[2024-08-24] MEDS: LACTATED RINGERS SOLUTION 1,000 ML/1,000 ML INFUS.BAG IV SCH ×2 (22:49→23:13)
[2024-08-25] MEDS: BISACODYL 5 MG TABLET.DR (FP) PO ONE (00:53)
[2024-08-25 09:56] LABS: BASO % 0.5 % (0-2.0); EOS % 0.7 % (0-4.5); HEMATOCRIT 35.4 % (35.4-49); HEMOGLOBIN 11.7 GM/dL (11.7-16.9); LYMPH % 13.2 % (8-40); MCH 26.7 pg (25.7-33.7); MCHC 33.2 g/dl (32.0-35.9); MEAN CELL VOLUME 80.4 fl (80-96); MONO % 8.3 % (3.8-10.2); NEUT % 77.3 % (42.8-82.8); PLATELET COUNT 438 10^3/uL (134-434); RDW 17.3 % (11.9-15.9); WHITE BLOOD COUNT 8.1 K/mm3 (4.0-10.0)
[2024-08-25 10:18] LABS: POTASSIUM 3.2 mmol/L (3.5-5.1)
[2024-08-25 10:22] LABS: CALCIUM 8.7 mg/dL (8.5-10.1)
[2024-08-25 10:23] LABS: BLOOD UREA NITROGEN 7.9 mg/dL (7-18); MAGNESIUM 1.4 mg/dL (1.8-2.4)
[2024-08-25 10:26] LABS: CREATININE 0.5 mg/dL (0.55-1.3); PHOSPHOROUS 3.6 mg/dL (2.5-4.9)
[2024-08-25] MEDS: MAGNESIUM SULFATE IN WATER 2 GM/50 ML IVPB IVPB ONE (11:09)
[2024-08-25] MEDS: POTASSIUM CHLORIDE ORAL LIQUID 20 MEQ/15 ML PO ONE (11:09)
[2024-08-25] MEDS ORDERED: BUPIVACAINE HCL/PF 0.25% (2.5MG/ML) 10 ML VIAL ONE (11:37)
[2024-08-25] MEDS: BUDESONIDE/FORMETEROL FUMARATE 160/4.5 mcg INHALER IH SCH ×2 (11:49→15:51)
[2024-08-25] MEDS ORDERED: ROCURONIUM BROMIDE 50 MG/5 ML SYRINGE ONE ×2 (11:52→13:35)
[2024-08-25] MEDS ORDERED: MIDAZOLAM HCL 2 MG/2 ML SINGLE DOSE VIAL ONE (11:53)
[2024-08-25] MEDS ORDERED: PROPOFOL 20 ML ONE (11:53)
[2024-08-25] MEDS ORDERED: LIDOCAINE HCL/PF 2% SDV 5ML VIAL ONE (13:03)
[2024-08-25] MEDS: cefOXitin SODIUM 2 GM VIAL (RESTRICTED TO ID) IVPB ONE (13:09)
[2024-08-25] MEDS ORDERED: ONDANSETRON 4 MG/2 ML VIAL ONE (13:37)
[2024-08-25] MEDS ORDERED: DEXAMETHASONE SOD PHOSPHATE 4 MG/1 ML VIAL ONE (13:37)
[2024-08-25] MEDS ORDERED: HYDROmorphone HCl 2 MG/ML VIAL ONE (13:43)
[2024-08-25] MEDS: BUPIVACAINE HCL/PF 0.25% (2.5MG/ML) 10 ML VIAL IJ ONE ×2 (13:50)
[2024-08-25] MEDS ORDERED: INDOCYANINE GREEN 25 MG/10 ML VIAL IVPUSH ONE (13:51)
[2024-08-25] MEDS ORDERED: ONDANSETRON 4 MG/2 ML VIAL IVPUSH PRN (18:45)
[2024-08-25] MEDS ORDERED: oxyCODONE HCL 5 MG TABLET PO PRN (19:22)
[2024-08-25] MEDS ORDERED: ELECTROLYTE-148 SOLN 1,000 ML IV SCH (19:22)
[2024-08-25] MEDS: LACTATED RINGERS SOLUTION 1,000 ML/1,000 ML INFUS.BAG IV SCH (20:40)
[2024-08-25] MEDS: PIPERACILLIN/TAZOB 3.375 GM 50 ML IVPB SCH (21:14)
[2024-08-25] MEDS: ONDANSETRON 4 MG/2 ML VIAL IVPUSH PRN (21:15)
[2024-08-25] MEDS: INSULIN ASPART SLIDING SCALE (NOVOLOG) 1 VIAL SQ SCH (21:15)
[2024-08-25] MEDS: ALBUTEROL SO4 HFA INHALER IH PRN (21:16)
[2024-08-26] MEDS: oxyCODONE HCL 5 MG TABLET PO PRN (00:13)
[2024-08-26] MEDS: ACETAMINOPHEN 1000 MG/100 ML BAG IVPB SCH (00:15)
[2024-08-26] MEDS: BUDESONIDE/FORMETEROL FUMARATE 160/4.5 mcg INHALER IH SCH (00:17)
[2024-08-26] MEDS: HYDROCHLOROTHIAZIDE 25 MG TABLET (FP) PO SCH (09:14)
[2024-08-26] MEDS: amLODIPine BESYLATE 10 MG TABLET (FP) PO SCH (09:15)
[2024-08-26] MEDS: LOSARTAN POTASSIUM 50 MG TABLET PO SCH (09:15)
[2024-08-26] MEDS: FAMOTIDINE 40 MG TABLET PO SCH (09:15)
[2024-08-26 09:58] LABS: BASO % 0.3 % (0-2.0); EOS % 0.1 % (0-4.5); HEMATOCRIT 35.5 % (35.4-49); HEMOGLOBIN 11.8 GM/dL (11.7-16.9); LYMPH % 10.4 % (8-40); MCH 26.7 pg (25.7-33.7); MCHC 33.4 g/dl (32.0-35.9); MEAN CELL VOLUME 80.1 fl (80-96); MEAN PLT VOLUME 8.1 fl (7.5-11.1); MONO % 9.5 % (3.8-10.2); NEUT % 79.7 % (42.8-82.8); PLATELET COUNT 437 10^3/uL (134-434); RBC 4.43 M/mm3 (4.00-5.60); RDW 17.1 % (11.9-15.9); WHITE BLOOD COUNT 11.8 K/mm3 (4.0-10.0)
[2024-08-26 10:25] LABS: POTASSIUM 3.6 mmol/L (3.5-5.1)
[2024-08-26 10:33] LABS: ALBUMIN 2.9 g/dl (3.4-5.0)
[2024-08-26 10:34] LABS: CALCIUM 8.3 mg/dL (8.5-10.1)
[2024-08-26 10:35] LABS: BILIRUBIN,TOTAL 0.7 mg/dL (0.2-1); MAGNESIUM 1.7 mg/dL (1.8-2.4)
[2024-08-26 10:36] LABS: CREATININE 0.9 mg/dL (0.55-1.3)
[2024-08-26] MEDS: HEPARIN NA (PORCINE) 5,000 UNITS/ML 1ML VIAL SQ SCH (14:54)
[2024-08-26] MEDS: PIPERACILLIN/TAZOB 3.375 GM 50 ML IVPB SCH (21:39)
[2024-08-26] MEDS: ACETAMINOPHEN 1000 MG/100 ML BAG IVPB PRN (22:33)
[2024-08-27] MEDS ORDERED: MELATONIN 5 MG TABLETS PO PRN (01:41)
[2024-08-27 02:33] VITALS: RESP 18
[2024-08-27] MEDS: KETOROLAC TROMETHAMINE 30 MG/1 ML VIAL IM PRN ×2 (06:31→14:48)
[2024-08-27 11:08] LABS: BASO % 0.5 % (0-2.0); EOS % 0.3 % (0-4.5); HEMATOCRIT 38.1 % (35.4-49); HEMOGLOBIN 12.3 GM/dL (11.7-16.9); LYMPH % 10.4 % (8-40); MCH 26.5 pg (25.7-33.7); MCHC 32.4 g/dl (32.0-35.9); MEAN CELL VOLUME 81.9 fl (80-96); MEAN PLT VOLUME 8.1 fl (7.5-11.1); MONO % 7.5 % (3.8-10.2); NEUT % 81.3 % (42.8-82.8); PLATELET COUNT 487 10^3/uL (134-434); RBC 4.65 M/mm3 (4.00-5.60); RDW 17.2 % (11.9-15.9); WHITE BLOOD COUNT 13.9 K/mm3 (4.0-10.0)
[2024-08-27 11:26] LABS: POTASSIUM 3.5 mmol/L (3.5-5.1)
[2024-08-27 11:33] LABS: CALCIUM 8.9 mg/dL (8.5-10.1)
[2024-08-27] MEDS: PIPERACILLIN/TAZOB 3.375 GM 3.375 GM in DEXTROSE 5%-WATER - 50 ML IVPB SCH (11:33)
[2024-08-27 11:34] LABS: ALBUMIN 3.2 g/dl (3.4-5.0); BLOOD UREA NITROGEN 7.7 mg/dL (7-18); MAGNESIUM 1.8 mg/dL (1.8-2.4)
[2024-08-27 11:35] LABS: BILIRUBIN,TOTAL 0.7 mg/dL (0.2-1); TOT PROT 6.9 g/dl (6.4-8.2)
[2024-08-27] MEDS: ACETAMINOPHEN 325 MG TABLET (FP) PO SCH ×2 (12:11→12:55)
[2024-08-27] MEDS: MAGNESIUM OXIDE 400 MG TABLET (FP) PO ONE ×2 (13:31→13:34)
[2024-08-27] MEDS ORDERED: PIPERACILLIN/TAZOB 3.375 GM 3.375 GM in DEXTROSE 5%-WATER - 50 ML IVPB SCH (18:00)
[2024-08-27] MEDS: traMADol HCL 50 MG TABLET PO PRN (20:05)
[2024-08-28 09:52] LABS: BASO % 0.9 % (0-2.0); EOS % 2.8 % (0-4.5); HEMATOCRIT 35.5 % (35.4-49); HEMOGLOBIN 11.8 GM/dL (11.7-16.9); LYMPH % 15.5 % (8-40); MCH 26.8 pg (25.7-33.7); MCHC 33.1 g/dl (32.0-35.9); MEAN PLT VOLUME 8.4 fl (7.5-11.1); MONO % 8.6 % (3.8-10.2); NEUT % 72.2 % (42.8-82.8); PLATELET COUNT 444 10^3/uL (134-434); RBC 4.39 M/mm3 (4.00-5.60); RDW 17.2 % (11.9-15.9); WHITE BLOOD COUNT 8.2 K/mm3 (4.0-10.0)
[2024-08-28 10:02] LABS: POTASSIUM 3.6 mmol/L (3.5-5.1)
[2024-08-28 10:31] LABS: CALCIUM 8.9 mg/dL (8.5-10.1)
[2024-08-28 10:32] LABS: BLOOD UREA NITROGEN 7.3 mg/dL (7-18)
[2024-08-28 10:33] LABS: ALBUMIN 2.9 g/dl (3.4-5.0); MAGNESIUM 1.8 mg/dL (1.8-2.4)
[2024-08-28 10:37] LABS: BILIRUBIN,TOTAL 0.7 mg/dL (0.2-1); CREATININE 0.7 mg/dL (0.55-1.3); TOT PROT 6.7 g/dl (6.4-8.2)
[2024-08-28 14:13] VITALS: BP 120/81; PULSE 75; TEMP 98.7
[2024-08-28] MEDS ORDERED: RIVAROXABAN 20 MG TABLET PO SCH (18:00)
== END 2024-08-28 14:26 | disposition home health service (06) | DRG 331 ==
LOC: UNDOADMOB 08-24 04:25 → INTOOBSV 08-24 04:25 → J2C 08-24 04:25 → J8W 08-24 09:16 → OBSVTOIN 08-25 14:31
PROVIDERS: ADMIT Surgery; ATTEND Registered Nurse
PROC: 0T9B80Z Drainage of Bladder with Drainage Device, Via Natural or Artificial Opening Endoscopic (ICD-10-PCS; 2024-08-25)
PROC: 8E0W4CZ Robotic Assisted Procedure of Trunk Region, Percutaneous Endoscopic Approach (ICD-10-PCS; 2024-08-25)
PROC: 0DBN4ZZ Excision of Sigmoid Colon, Percutaneous Endoscopic Approach (ICD-10-PCS; principal; 2024-08-25 12:00)
PROC: 0DJD8ZZ Inspection of Lower Intestinal Tract, Via Natural or Artificial Opening Endoscopic (ICD-10-PCS; 2024-08-25 12:00)
DX: K57.20 Diverticulitis of large intestine with perforation and abscess without bleeding (principal); N40.0 Benign prostatic hyperplasia without lower urinary tract symptoms; N32.89 Other specified disorders of bladder; I25.10 Atherosclerotic heart disease of native coronary artery without angina pectoris; I10 Essential (primary) hypertension; E78.5 Hyperlipidemia, unspecified; E11.9 Type 2 diabetes mellitus without complications; I48.91 Unspecified atrial fibrillation; E66.9 Obesity, unspecified; Z68.39 Body mass index [BMI] 39.0-39.9, adult
CPT/HCPCS: 36415; 80048; 80053; 82962; 83735; 84100; 85025; 86140; 86850; 86900; 86901; 88305-TC; 88307-TC; 88342-TC; 94010; 94760; G0378; J0131; J1644

== ENCOUNTER 2024-10-31 14:19 | Emergency (ER) | payer OTHER, MEDICARE ==
[2024-10-31 14:40] VITALS: BP 140/84; PULSE 92; RESP 18; TEMP 98.8; BMI 39.1
== END 2024-10-31 15:53 | disposition home or self-care (01) ==
LOC: FER 14:19
DX: R20.9 Unspecified disturbances of skin sensation (principal); T37.8X5A Adverse effect of other specified systemic anti-infectives and antiparasitics, initial encounter; T44.6X5A Adverse effect of alpha-adrenoreceptor antagonists, initial encounter; R05.9 Cough, unspecified
CPT/HCPCS: 71046-TC-FY; 99283-25

== ENCOUNTER 2024-11-06 11:09 | Emergency (ER) | payer OTHER, MEDICARE ==
[2024-11-06 11:18] VITALS: RESP 18; BMI 34.8
[2024-11-06] MEDS ORDERED: KETOROLAC TROMETHAMINE 30 MG/1 ML VIAL ONE (11:41)
[2024-11-06 11:45] VITALS: BP 150/87; PULSE 89; TEMP 99
[2024-11-06] MEDS: KETOROLAC TROMETHAMINE 30 MG/1 ML VIAL IM ONE (11:45)
== END 2024-11-06 13:15 | disposition home or self-care (01) ==
LOC: FER 11:09
PROC: 3E0133Z Introduction of Anti-inflammatory into Subcutaneous Tissue, Percutaneous Approach (ICD-10-PCS; principal; 2024-11-06)
DX: M79.644 Pain in right finger(s) (principal); M79.89 Other specified soft tissue disorders
CPT/HCPCS: 73110-TC-RT-FY; 73130-TC-RT-FY; 99284-25